=== PATIENT | male | born 1940 | race Caucasian/White ===

== ENCOUNTER → 2018-05-09 11:55 | Outpatient (CLI) | payer MEDICARE, SELFPAY ==
--- NOTE | 2018-05-09 | DI.CT.S_ITS ---
PROCEDURE: CT CHEST HIGH RESOLUTION INDICATIONS: Pulmonary Fibrosis. Short of breath TECHNIQUE: Noncontrast 1.0 and 5.0 mm thick contiguous axial sections from the pulmonary apex to the posterior costophrenic angles, with 7 mm thick coronal and sagittal MIP reformats. 1 mm thick dynamic expiratory images acquired through the upper, mid, and lower lungs. 1.0 mm thick axial sections acquired from the michel to the posterior costophrenic angles in the prone end-inspiration position. For radiation dose reduction, the following was used: automated exposure control, adjustment of mA and/or kV according to patient size. COMPARISON: [facility], CT, CHEST HIGH RESOLUTION, 08/11/2009, 10:16. FINDINGS: Image quality: Excellent. Lungs: No active alveolitis is seen. With reference to the comparison study from August 2009 no worsening pulmonary fibrotic change is found. Pleura: No pleural effusions or pneumothorax. Mediastinum: Heart size is normal. No pericardial effusion. Thoracic aorta and central pulmonary arteries are normal in size. Esophagus is normal in caliber. Bones and chest wall: No suspicious bony lesions. No vertebral body compression fractures. Abdomen: Visualized upper abdominal solid organs and bowel loops appear normal. IMPRESSION: Stable appearance of moderate pulmonary fibrosis, no active alveolitis is found. No source of new symptoms is identified. Dictated by: Wyatt Wei M.D. on 05/09/2018 at 12:56 Approved by: Wyatt Wei M.D. on 05/09/2018 at 12:57
== END ==
PROVIDERS: Family Provider Internal Medicine; Visit Provider Internal Medicine
DX: J84.10 Pulmonary fibrosis, unspecified (principal); R06.02 Shortness of breath
CPT/HCPCS: 71250

== ENCOUNTER → 2019-05-13 18:59 | Outpatient (ROUT) | payer MEDICARE, SELFPAY ==
[2019-05-13 19:28] LABS: Aspartate Aminotransferase 38 IU/L (17-59); BUN Creatinine Ratio 22.9 (6-22); Blood Urea Nitrogen 16 mg/dL (9-20); Calcium 9.7 mg/dL (8.4-10.2); Carbon Dioxide 27 mmol/L (22-32); Chloride 102 mmol/L (98-107); Cholesterol 100 mg/dL (140-199); Estimated Glomerular Filt Rate > 60.0 mL/min (>60); Glucose 95 mg/dL (80-110); HDL Cholesterol 52 mg/dL (40-60); HEMOLYSIS < 15 (0-50); LDL Cholesterol Calculated 26 mg/dL (<100); Potassium 3.9 mmol/L (3.4-5.1); Sodium 138 mmol/L (137-145); Triglycerides 109 mg/dL (35-150)
== END ==
PROVIDERS: Family Provider Internal Medicine; Visit Provider Internal Medicine
DX: E78.2 Mixed hyperlipidemia (principal); I10 Essential (primary) hypertension
CPT/HCPCS: 80048; 80061; 84450

== ENCOUNTER → 2020-03-17 16:44 | Outpatient (ROUT) | payer MEDICARE, SELFPAY ==
[2020-03-17 17:41] LABS: Aspartate Aminotransferase 40 IU/L (17-59); BUN Creatinine Ratio 22.2 (6-22); Blood Urea Nitrogen 18 mg/dL (9-20); Calcium 9.5 mg/dL (8.4-10.2); Carbon Dioxide 34 mmol/L (22-32); Chloride 100 mmol/L (98-107); Cholesterol 121 mg/dL (140-199); Estimated Glomerular Filt Rate > 60.0 mL/min (>60); Glucose 111 mg/dL (80-110); HDL Cholesterol 66 mg/dL (40-60); HEMOLYSIS < 15 (0-50); LDL Cholesterol Calculated 42 mg/dL (<100); Sodium 138 mmol/L (137-145); Triglycerides 63 mg/dL (35-150)
[2020-03-17 18:07] LABS: Prostate Specific Antigen 3.69 ng/mL (0.10-4.00)
== END ==
PROVIDERS: Family Provider Internal Medicine; Visit Provider Internal Medicine
DX: I10 Essential (primary) hypertension (principal); E78.2 Mixed hyperlipidemia; N40.0 Benign prostatic hyperplasia without lower urinary tract symptoms
CPT/HCPCS: 80048; 80061; 84153; 84450

== ENCOUNTER → 2020-03-21 15:49 | Outpatient (CLI) | payer MEDICARE, SELFPAY ==
--- NOTE | 2020-03-21 16:17 | DI.ECHO.S_ITS ---
Echocardiogram Report + + :Name: MARCO ANTONIO MEDEROS Study Date: 03/21/2020 Height: 70 in : :[facility] Weight: 186 lb : : Gender: Male BSA: 2.0 m2 : :: 1940 Age: 80 yrs BP: 137/80 mmHg: :Reason For Study: AORTIC INSUFFICIENCY : :Ordering Physician: BEA, : :ALEX Performed By: Marleen Parnell : :Referring: ALEX FIGUEREDO : + + Interpretation Summary The ejection fraction is estimated to be 55-60%. There is mild mitral regurgitation. There is mild to moderate aortic regurgitation. This is unchanged compared to the previous study. There is mild tricuspid regurgitation. Procedure: A two-dimensional transthoracic echocardiogram with color flow and Doppler was performed. The study quality was technically adequate. Comparison is made with the echocardiogram of 06/15/2010. The heart rate ranged between 67-90 bpm during the study. Left Ventricle: The left ventricle is normal in size. There is mild concentric left ventricular hypertrophy. The ejection fraction is estimated to be 55-60%. Left ventricular wall motion is normal. Diastolic parameters suggest a relaxation abnormality of the left ventricle, consistent with probable normal filling pressures. Right Ventricle: The right ventricle is normal in size and function. Atria: The left atrium is mildly dilated. Right atrial size is normal. There is no Doppler evidence for an interatrial shunt. Mitral Valve: The mitral valve is normal in structure and function. There is mild mitral regurgitation. Aortic Valve: The aortic valve is trileaflet. The aortic valve opens well. There is no aortic valve stenosis. There is mild to moderate aortic regurgitation. This is unchanged compared to the previous study. Tricuspid Valve: The tricuspid valve is normal in structure and function. There is mild tricuspid regurgitation. Pulmonary artery pressures cannot be estimated because of the lack of a measurable TR jet velocity but the IVC suggests a CVP of around 3 mmHg. Pulmonic Valve: The pulmonic valve leaflets are thin and pliable; valve motion is normal. There is no pulmonic valvular regurgitation. Great Vessels: The aortic root is mildly dilated. The ascending aorta is severely enlarged. The IVC is of normal diameter and collapses greater than 50% with a sniff. This suggests a low right atrial pressure of 3 mm Hg. Pericardium/ Pleura There is no pericardial effusion. There is no pleural effusion. MMode/2D Measurements & Calculations LVIDd: 4.2 cm LVOT diam: 2.5 cm LVIDs: 2.8 cm Ao root diam: 3.9 cm FS: 33.9 % asc Aorta Diam: 4.8 cm EPSS: 0.68 cm Ao Arch Diam (Prox Trans): 4.1 cm IVSd: 1.3 cm LVPWd: 1.3 cm LV lopez. diameter/BSA (cm/m^2): 2.1 LV sys. diameter/BSA (cm/m^2): 1.4 LA A2 area: 22.6 cm2 RA long axis: 6.4 cm LA A4 area: 25.1 cm2 RA area: 15.1 cm2 LA length (vol): 6.7 cm RA vol: 30.5 ml LA vol: 71.3 ml RA : 15.1 ml/m2 LA vol index: 35.2 ml/m2 IVC diam: 1.4 cm RVD1 (basal): 3.6 cm TAPSE: 1.9 cm Doppler Measurements & Calculations Ao V2 max: 176.3 cm/sec LVOT Max Jerry: 101.1 cm/sec Ao V2 mean: 113.5 cm/sec LV V1 max P.1 mmHg Ao max P.4 mmHg LV V1 VTI: 19.6 cm Ao mean P.0 mmHg HERBIE(I,D): 2.7 cm2 Ao V2 VTI: 34.0 cm HERBIE(V,D): 2.7 cm2 sev ratio: 0.58 HERBIE indexed to BSA (cm^2/m^2): 1.3 AI P1/2t: 527.1 msec AI dec slope: 257.4 cm/sec2 MV E max jerry: 67.3 cm/sec PA pr(Accel): 43.0 mmHg MV A max jerry: 51.5 cm/sec MV E/A: 1.3 Med Peak E' Jerry: 6.0 cm/sec E/E' med: 11.1 Lat Peak E' Jerry: 11.5 cm/sec E/E' lat: 5.8 E/e' average: 8.5 MV dec time: 0.21 sec SV(LVOT): 92.7 ml Reading Physician:09:57 AM
== END ==
PROVIDERS: Family Provider Internal Medicine; PCP Internal Medicine; Referring Provider Internal Medicine; Visit Provider Internal Medicine
DX: I08.3 Combined rheumatic disorders of mitral, aortic and tricuspid valves (principal); I77.810 Thoracic aortic ectasia
CPT/HCPCS: 93306

== ENCOUNTER → 2020-06-28 14:44 | Outpatient (ROUT) | payer MEDICARE, SELFPAY ==
[2020-06-28 15:06] LABS: BUN Creatinine Ratio 19.7 (6-22); Blood Urea Nitrogen 15 mg/dL (9-20); Calcium 10.1 mg/dL (8.4-10.2); Carbon Dioxide 36 mmol/L (22-32); Chloride 102 mmol/L (98-107); Estimated Glomerular Filt Rate > 60.0 mL/min (>60); Glucose 90 mg/dL (80-110); HEMOLYSIS < 15 (0-50); Potassium 3.9 mmol/L (3.4-5.1); Sodium 141 mmol/L (137-145)
== END ==
PROVIDERS: Family Provider Internal Medicine; PCP Internal Medicine; Visit Provider Internal Medicine
DX: Z00.00 Encounter for general adult medical examination without abnormal findings (principal)
CPT/HCPCS: 80048

== ENCOUNTER 2021-05-23 08:50 | Inpatient (IN) | payer MEDICARE, SELFPAY ==
[2021-05-23] VITALS (19 sets, daily range): BP systolic 144–183; BP diastolic 74–95; PULSE 74–120; RESP 15–32; TEMP 37–37.2; O2SAT 84–99; BMI 25.5; BMI 24.3
--- NOTE | 2021-05-23 09:16 | DI.RAD.S_ITS ---
PROCEDURE: XR CHEST 2V INDICATIONS: shortness of breath TECHNIQUE: 2 views of the chest were acquired. COMPARISON: None. FINDINGS: Surgical changes and devices: None. Lungs and pleura: Patchy airspace opacities noted in the lungs bilaterally compatible with multilobar pneumonia.. No pleural effusions or pneumothorax. Mediastinum: Mediastinal contours are normal. Heart is enlarged. Bones and chest wall: No suspicious bony abnormalities. Soft tissues appear unremarkable. IMPRESSION: Bilateral lung patchy opacities compatible with multilobar pneumonia. Dictated by: Urvashi Rasmussen MD, PhD on 05/23/2021 at 9:53 Approved by: Urvashi Rasmussen MD, PhD on 05/23/2021 at 9:54
--- NOTE | 2021-05-23 09:32 | ED.GENADULT ---
HPI - General Adult General Chief complaint: Shortness of Breath/Dyspnea Stated complaint: SHORTNESS OF BREATH Time Seen by Provider: 05/23/21 09:22 Source: patient Mode of arrival: Wheelchair Limitations: no limitations History of Present Illness HPI narrative: Patient is a 81-year-old male. History of high blood pressure. Has had reported shortness of breath on exertion for the past several weeks/months. He reports that over the past week or so things seem to have gotten worse and this morning it got to the point where he could not even stand up and take a couple steps before becoming very short of breath. He has been immunized against COVID-19. He denies chest discomfort. 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 He has been coughing but is been nonproductive. He denies any fevers. No change in bowel habits. No urinary symptoms. No skin changes. Related Data Home Medications Medication Instructions Recorded Confirmed lisinopril 40 mg tablet 20 mg PO QDAY #0 01/25/12 05/23/21 aspirin 81 mg tablet,delayed 81 mg PO DAILY 05/23/21 05/23/21 release atorvastatin 10 mg tablet 10 mg PO DAILY 05/23/21 05/23/21 carvedilol 6.25 mg tablet 6.25 mg PO BID 05/23/21 05/23/21 cholecalciferol (vitamin D3) 25 25 mcg PO DAILY 05/23/21 05/23/21 mcg (1,000 unit) tablet cyanocobalamin (vitamin B-12) 1,000 mcg PO DAILY 05/23/21 05/23/21 1,000 mcg tablet diclofenac sodium 1 % topical gel 2 g TOPICAL QID PRN 05/23/21 05/23/21 diphenhydramine 25 1 tab PO BEDTIME PRN 05/23/21 05/23/21 mg-acetaminophen 500 mg tablet (Tylenol PM Extra Strength) Allergies Allergy/AdvReac Type Severity Reaction Status Date / Time tamsulosin AdvReac Intermediate syncope Verified 05/23/21 14:48 rosuvastatin AdvReac Mild myalgias Verified 05/23/21 14:48 Review of Systems Constitutional Constitutional: Denies headache(s) ENT Ears, Nose, Mouth, and Throat: Denies headache(s) Cardiovascular Cardiovascular: Reports as per HPI and Reports system reviewed and no additional complaints, except as documented Respiratory Respiratory: Reports as per HPI and Reports system reviewed and no additional complaints, except as documented Gastrointestinal Gastrointestinal: Reports as per HPI and Reports system reviewed and no additional complaints, except as documented Genitourinary Genitourinary: Reports system reviewed and no additional complaints, except as documented and Reports as per HPI Musculoskeletal Musculoskeletal: Reports system reviewed and no additional complaints, except as documented Integumentary/Breasts Skin/Breast: Reports system reviewed and no additional complaints, except as documented Neurologic Neurologic: Denies headache(s) Hematologic/Lymphatic On Anticoagulants: No Patient History Medical History BPH (benign prostatic hyperplasia) Hyperlipemia Hypertension Nonrheumatic aortic (valve) insufficiency Palmar fascial fibromatosis [dupuytren] Pulmonary fibrosis Thoracic aortic aneurysm without rupture Social History household members: spouse Smoking Status: Never smoker alcohol intake: current Smoking Status: Unknown if ever smoked alcohol intake frequency: holidays/special occasions only Substance Use Type: does not use Exam Initial Vital Signs Initial Vital Signs: Vital Signs Temperature 98.7 F 05/23/21 09:05 Pulse Rate 111 H 05/23/21 09:05 Respiratory Rate 25 H 05/23/21 09:05 Blood Pressure 183/87 H 05/23/21 09:05 Pulse Oximetry 87 L 05/23/21 09:05 Const General: cooperative, healthy appearing and comfortable HENCT Head: normal to inspection and normocephalic Eyes General: appearance normal, both eyes and all related structures Resp Effort & Inspection: normal respiratory effort, not labored and tachypneic Auscultation: clear to auscultation bilaterally Cardio Rate: regular rate Rhythm: regular rhythm GI Inspection: normal to inspection Skin General: no rashes or lesions noted Neuro General: patient alert, patient awake and moves all extremities Extrem General: No edema Psych Appearance: grossly normal and well kempt Scores GCS [place] coma scale eye opening: Spontaneous [place] coma scale verbal response: Orientated [place] coma scale motor response: Obey commands [place] coma scale total score: 15 Course Orders Ordered: ED Orders 05/23/21 09:10 COVID19 -Nasal swab/Pre-Proc Stat 05/23/21 09:16 XR chest 2V Stat EKG-12 Lead Stat Measure peak expiratory flow ONCE RT Consult Eval and Treat Now 05/23/21 09:20 Complete Blood Count AUTO DIFF Stat Comprehensive Metabolic Panel Stat Lactate (Lactic Acid) Stat NT-proBNP (BNP-Adult 18+) Stat Procalcitonin Stat Troponin & CK Cardiac Panel Stat 05/23/21 09:40 CT angio chest PE protocol Stat 05/23/21 11:52 Respiratory Panel (Film Array) Stat 05/23/21 11:57 Blood Culture Stat Aspirin (Aspirin Ec 81 Mg Tablet) 81 mg PO DAILY ELIZABETH Atorvastatin Calcium (Atorvastatin 20 Mg Tablet) 10 mg PO DAILY [facility] Carvedilol (Carvedilol 3.125 Mg Tablet) 6.25 mg PO BID [facility]ETH Cyanocobalamin (Cyanocobalamin (Vitamin B-12) 500 Mcg Tablet) 1,000 mcg PO DAILY [facility] Enoxaparin Sodium (Enoxaparin 40 Mg/0.4 Ml Syringe) [address] [facility] Ceftriaxone Sodium 1,000 mg/ (Sodium Chloride) 100 mls @ 200 mls/hr IV Q24H [facility]ETH Azithromycin 500 mg/ Dextrose 250 mls @ 250 mls/hr IV Q24H [facility] Lisinopril (Lisinopril 20 Mg Tablet) 20 mg PO DAILY [facility]ETH Vitamin D (Cholecalciferol (Vitamin D3) 1,000 Unit Tablet) 1,000 unit PO DAILY EL[facility]ABETH Discontinued Medications Azithromycin 500 mg/ Dextrose 250 mls @ 250 mls/hr IV NOW ONE Stop: 05/23/21 11:31 Last Infusion: 05/23/21 16:40 Dose: 0 mls/hr Documented by: Admin: 05/23/21 13:07 Dose: 250 mls/hr Documented by: MARIELENA Ceftriaxone Sodium 1,000 mg/ (Sodium Chloride) 100 mls @ 200 mls/hr IV NOW ONE Stop: 05/23/21 11:31 Last Infusion: 05/23/21 13:13 Dose: 0 mls/hr Documented by: Admin: 05/23/21 11:50 Dose: 200 mls/hr Documented by: MARIELENA Vital Signs Vital signs: Vital Signs - 8 hr 05/23/21 10:00 05/23/21 10:07 05/23/21 10:30 Pulse Rate 120 H 107 H 82 Respiratory Rate 27 H 30 H 27 H Blood Pressure 174/95 H 163/81 H Pulse Oximetry 91 96 98 05/23/21 11:00 05/23/21 11:30 05/23/21 12:00 Pulse Rate 79 78 87 Respiratory Rate 28 H 28 H 32 H Blood Pressure 155/84 H 167/80 H Pulse Oximetry 99 98 98 Medical Decision Making Medical Records Medical records reviewed: Yes I reviewed the patient's medical records. Lab Data Lab results reviewed: Yes I reviewed the patient's lab results. Result diagrams: 05/23/21 09:20 05/23/21 09:20 Labs: Lab Results 05/23/21 05/23/21 05/23/21 Range/Units 09:10 09:20 09:20 WBC 8.4 (4.5-11.0) X10^3/uL RBC 4.63 (4.5-5.9) X10^6/uL Hgb 14.3 (13.5-17.5) g/dL Hct 43.8 (41-53) % MCV 94.6 (80-100) fL MCH 30.9 (26-34) PG MCHC 32.7 (30-36) % RDW 17.5 H (11.6-14.8) % Plt Count 92 L (150-400) X10^3/uL Neut % (Auto) 81.2 H (50-75) % Lymph % (Auto) 4.8 L (25-40) % [place] % (Auto) 12.5 (3-14) % Eos % (Auto) 0.9 L (2-4) % Baso % (Auto) 0.6 (0-2) % Neut # (Auto) 6800 (2092-3174) /uL Lymph # (Auto) 400 L (2953-4257) /uL [place] # (Auto) 1000 H (0-900) /uL Eos # (Auto) 100 (0-450) /uL Baso # (Auto) 0 (0-100) /uL Sodium 138 (137-145) mmol/L Potassium 3.8 (3.4-5.1) mmol/L Chloride 103 (98-107) mmol/L Carbon Dioxide 25 (22-32) mmol/L BUN 15 (9-20) mg/dL Creatinine 0.84 (0.66-1.25) mg/dL Estimated GFR > 60.0 (>60) mL/min BUN/Creatinine Ratio 17.9 (6-22) Glucose 118 H (80-110) mg/dL Lactate (0.7-2.1) mmol/L Calcium 8.9 (8.4-10.2) mg/dL Total Bilirubin 2.2 H (0.2-1.3) mg/dL AST 53 (17-59) IU/L ALT 35 (<50) IU/L Alkaline Phosphatase 65 (38-126) U/L Total Creatine Kinase (55-170) U/L CK-MB (CK-2) CK-MB (CK-2) Rel Index Troponin I (0.01-0.034) ng/mL NT-Pro-B Natriuret Pep 3380 H (<450) pg/mL Total Protein 6.8 (6.3-8.2) g/dL Albumin 4.0 (3.5-5.0) g/dL Globulin 2.8 (1.7-4.1) g/dL Albumin/Globulin Ratio 1.4 (1.0-2.8) Procalcitonin (<0.5) ng/mL Chlamy pneumoniae PCR (Not Detect) Adenovirus (PCR) (Not Detect) B. pertussis DNA (PCR) (Not Detecte) B.parapertussis DNA PCR (Not Detecte) Coronavirus OC43 (PCR) (Not Detect) Coronavirus HKU1 (PCR) (Not Detect) Coronavirus 229E (PCR) (Not Detect) SARS-CoV-2 (PCR) Negative (Negative) Coronavirus NL63 (PCR) (Not Detect) Human Metapneumovir PCR (Not Detect) Influenza Type A (PCR) (Not Detect) Influenza Type B (PCR) (Not Detect) M. pneumoniae (PCR) (Not Detect) Parainfluenza 1 (PCR) (Not Detect) Parainfluenza 2 (PCR) (Not Detect) Parainfluenza 3 (PCR) (Not Detect) Parainfluenza 4 (PCR) (Not Detect) RSV (PCR) (Not Detect) Entero/Rhino (PCR) (Not Detect) 05/23/21 05/23/21 05/23/21 Range/Units 09:20 09:20 09:20 WBC (4.5-11.0) X10^3/uL RBC (4.5-5.9) X10^6/uL Hgb (13.5-17.5) g/dL Hct (41-53) % MCV (80-100) fL MCH (26-34) PG MCHC (30-36) % RDW (11.6-14.8) % Plt Count (150-400) X10^3/uL Neut % (Auto) (50-75) % Lymph % (Auto) (25-40) % [place] % (Auto) (3-14) % Eos % (Auto) (2-4) % Baso % (Auto) (0-2) % Neut # (Auto) (4416-0504) /uL Lymph # (Auto) (5133-4857) /uL [place] # (Auto) (0-900) /uL Eos # (Auto) (0-450) /uL Baso # (Auto) (0-100) /uL Sodium (137-145) mmol/L Potassium (3.4-5.1) mmol/L Chloride (98-107) mmol/L Carbon Dioxide (22-32) mmol/L BUN (9-20) mg/dL Creatinine (0.66-1.25) mg/dL Estimated GFR (>60) mL/min BUN/Creatinine Ratio (6-22) Glucose (80-110) mg/dL Lactate 1.7 (0.7-2.1) mmol/L Calcium (8.4-10.2) mg/dL Total Bilirubin (0.2-1.3) mg/dL AST (17-59) IU/L ALT (<50) IU/L Alkaline Phosphatase (38-126) U/L Total Creatine Kinase 38 L (55-170) U/L CK-MB (CK-2) TNP CK-MB (CK-2) Rel Index TNP Troponin I 0.028 (0.01-0.034) ng/mL NT-Pro-B Natriuret Pep (<450) pg/mL Total Protein (6.3-8.2) g/dL Albumin (3.5-5.0) g/dL Globulin (1.7-4.1) g/dL Albumin/Globulin Ratio (1.0-2.8) Procalcitonin 0.29 (<0.5) ng/mL Chlamy pneumoniae PCR (Not Detect) Adenovirus (PCR) (Not Detect) B. pertussis DNA (PCR) (Not Detecte) B.parapertussis DNA PCR (Not Detecte) Coronavirus OC43 (PCR) (Not Detect) Coronavirus HKU1 (PCR) (Not Detect) Coronavirus 229E (PCR) (Not Detect) SARS-CoV-2 (PCR) (Negative) Coronavirus NL63 (PCR) (Not Detect) Human Metapneumovir PCR (Not Detect) Influenza Type A (PCR) (Not Detect) Influenza Type B (PCR) (Not Detect) M. pneumoniae (PCR) (Not Detect) Parainfluenza 1 (PCR) (Not Detect) Parainfluenza 2 (PCR) (Not Detect) Parainfluenza 3 (PCR) (Not Detect) Parainfluenza 4 (PCR) (Not Detect) RSV (PCR) (Not Detect) Entero/Rhino (PCR) (Not Detect) 05/23/21 Range/Units 11:52 WBC (4.5-11.0) X10^3/uL RBC (4.5-5.9) X10^6/uL Hgb (13.5-17.5) g/dL Hct (41-53) % MCV (80-100) fL MCH (26-34) PG MCHC (30-36) % RDW (11.6-14.8) % Plt Count (150-400) X10^3/uL Neut % (Auto) (50-75) % Lymph % (Auto) (25-40) % [place] % (Auto) (3-14) % Eos % (Auto) (2-4) % Baso % (Auto) (0-2) % Neut # (Auto) (7031-3430) /uL Lymph # (Auto) (6858-8754) /uL [place] # (Auto) (0-900) /uL Eos # (Auto) (0-450) /uL Baso # (Auto) (0-100) /uL Sodium (137-145) mmol/L Potassium (3.4-5.1) mmol/L Chloride (98-107) mmol/L Carbon Dioxide (22-32) mmol/L BUN (9-20) mg/dL Creatinine (0.66-1.25) mg/dL Estimated GFR (>60) mL/min BUN/Creatinine Ratio (6-22) Glucose (80-110) mg/dL Lactate (0.7-2.1) mmol/L Calcium (8.4-10.2) mg/dL Total Bilirubin (0.2-1.3) mg/dL AST (17-59) IU/L ALT (<50) IU/L Alkaline Phosphatase (38-126) U/L Total Creatine Kinase (55-170) U/L CK-MB (CK-2) CK-MB (CK-2) Rel Index Troponin I (0.01-0.034) ng/mL NT-Pro-B Natriuret Pep (<450) pg/mL Total Protein (6.3-8.2) g/dL Albumin (3.5-5.0) g/dL Globulin (1.7-4.1) g/dL Albumin/Globulin Ratio (1.0-2.8) Procalcitonin (<0.5) ng/mL Chlamy pneumoniae PCR Not detected (Not Detect) Adenovirus (PCR) Not detected (Not Detect) B. pertussis DNA (PCR) Not detected (Not Detecte) B.parapertussis DNA PCR Not detected (Not Detecte) Coronavirus OC43 (PCR) Not detected (Not Detect) Coronavirus HKU1 (PCR) Not detected (Not Detect) Coronavirus 229E (PCR) Not detected (Not Detect) SARS-CoV-2 (PCR) Not detected (Negative) Coronavirus NL63 (PCR) Not detected (Not Detect) Human Metapneumovir PCR Not detected (Not Detect) Influenza Type A (PCR) Not detected (Not Detect) Influenza Type B (PCR) Not detected (Not Detect) M. pneumoniae (PCR) Not detected (Not Detect) Parainfluenza 1 (PCR) Not detected (Not Detect) Parainfluenza 2 (PCR) Not detected (Not Detect) Parainfluenza 3 (PCR) Not detected (Not Detect) Parainfluenza 4 (PCR) Not detected (Not Detect) RSV (PCR) Not detected (Not Detect) Entero/Rhino (PCR) Not detected (Not Detect) Imaging Data Chest x-ray: Radiologist's Impression: [address] [address] XRay Report Signed Patient: Fidel Evans MR#: [id number] : 1940 Acct:[id number] Age/Sex: 81 / M Date of Service: 05/23/21 Loc: ED Accession Number: [id number] ?? Procedure: XR chest 2V Ordering Provider: Jarrell Aggarwal D.O. PROCEDURE:? XR CHEST 2V ? INDICATIONS:? shortness of breath ? TECHNIQUE:? 2 views of the chest were acquired.? ? COMPARISON:? None. ? FINDINGS:? ? Surgical changes and devices:? None.? ? Lungs and pleura:? Patchy airspace opacities noted in the lungs bilaterally compatible with multilobar pneumonia..? No pleural effusions or pneumothorax.? ? Mediastinum:? Mediastinal contours are normal.? Heart is enlarged. ? Bones and chest wall:? No suspicious bony abnormalities.? Soft tissues appear unremarkable.? ? IMPRESSION:? Bilateral lung patchy opacities compatible with multilobar pneumonia. ? ? Dictated by: Urvashi Rasmussen MD, PhD on 05/23/2021 at 9:53 ? ? Approved by: Urvashi Rasmussen MD, PhD on 05/23/2021 at 9:54 CT scan - chest: Radiologist's Impression: [address] [address] [address] Scan Report Signed Patient: Fidel Evans MR#: [id number] : 1940 Acct:[id number] Age/Sex: 81 / M Date of Service: 05/23/21 Loc: ED Accession Number: [id number] ?? Procedure: CT angio chest PE protocol Ordering Provider: Jarrell Aggarwal D.O. PROCEDURE:? CT ANGIO CHEST PE PROTOCOL ? INDICATIONS:? SOB/tachycardia KNOWN PULMINARY FIBROSIS ? TECHNIQUE:? After the administration of intravenous contrast, 2 mm thick sections acquired from the pulmonary apices to the posterior costophrenic angles.? 3-dimensional maximum intensity projection (MIP) coronal and sagittal reformats were then acquired through the thorax.? For radiation dose reduction, the following was used:? automated exposure control, adjustment of mA and/or kV according to patient size.? ? COMPARISON:? [facility], CT, CT CHEST HIGH RESOLUTION, 05/09/2018, 11:58. ? FINDINGS:? Lungs:? Severe basilar predominant bilateral interstitial disease with areas of honeycombing in both lower lobes, scattered reticular and ground-glass opacities.? No definite focal consolidation. Airway thickening in keeping with nonspecific bronchitis and/or reactive airways disease.? ? Pleura:? No pleural effusion or pneumothorax.? Heart:? Severe cardiomegaly.? No pericardial effusion.? Reflux of contrast into the IVC and hepatic veins suggesting decreased cardiac output. Chest nodes: Normal.? Thyroid gland:? Negative Aorta:? Enlarged ascending thoracic aorta measuring approximately 5.1 cm in diameter. Scattered atheromatous calcifications in the aorta.? Suboptimal opacification of the lumen however no definite abnormality or displaced intimal calcifications. Pulmonary arteries:? Enlarged.? No intraluminal filling defect Esophagus: Normal Upper abdomen: No significant findings.? Bones:? No compression fracture. No suspicious bone lesion. Diffuse spondylytic changes and facet arthropathy. ? IMPRESSION:? ? No evidence of pulmonary embolism. No aortic dissection identified. ? Severe cardiomegaly.? CT evidence of decreased cardiac output. ? Enlarged ascending thoracic aorta as above. ? Enlarged central pulmonary arteries suggestive of pulmonary arterial hypertension. ? 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 No definite interval change or progression since 05/15/18.? Given advanced interstitial changes and it would be difficult to exclude early bronchopneumonia. If there is persistent clinical diagnostic uncertainty, continued surveillance with short interval radiographic followup after treatment is recommended. ? Dictated by: Amarjit Lee M.D. on 05/23/2021 at 10:05 ? ? Approved by: Amarjit Lee M.D. on 05/23/2021 at 10:12?? ECG Data Attestation: I personally reviewed and interpreted this ECG as follows: Interpretation: Sinus rhythm Occasional PAC Ventricular rate 98 Rightward axis QRS 1-[address] T wave changes Repeat EKG Sinus rhythm Ventricular rate is 78 Incomplete right bundle branch block QRS 98 milliseconds Normal QTC Normal axis Nonspecific ST T wave changes MDM Narrative Medical decision making narrative: Patient was hypoxic upon arrival on room air. This did improve with oxygen by nasal cannula. He states that he felt much better with the nasal cannula as well. He denies chest pain. Initial labs relatively unremarkable. Nonspecific changes on the EKG. Chest x-ray concern for bilateral pneumonia. He does not have leukocytosis. CTA of the chest shows no pulmonary embolism. Patient does have a history of pulmonary fibrosis and what he presents with today worsening over the past couple weeks could potentially be just worsening of the symptoms however given the findings of the chest x-ray we will treat him as a pneumonia. Given his hypoxia patient does require admission to the hospital. Discussed the case with Dr. Perkins with internal medicine who will admit for further evaluation and treatment. Did discuss the findings with the patient and the need for admission. He expressed understanding and agreement as well. Discharge Plan Departure Patient Disposition: Admitted As Inpatient Clinical Impression: Dyspnea on exertion, Hypoxia, Pulmonary fibrosis, Pneumonia Admit Date/Time: 05/23/21 12:00 Admit Provider: Deng Perkins
[2021-05-23 09:36] LABS: Add Manual Diff / Slide Review NO; Basophils Absolute Auto 0 /uL (0-100); Basophils Percent Auto 0.6 % (0-2); Eosinophils Absolute Auto 100 /uL (0-450); Eosinophils Percent Auto 0.9 % (2-4); Hematocrit 43.8 % (41-53); Hemoglobin 14.3 g/dL (13.5-17.5); Lymphocytes Absolute Auto 400 /uL (1100-4500); Lymphocytes Percent Auto 4.8 % (25-40); Mean Corpuscular HGB Conc 32.7 % (30-36); Mean Corpuscular Hemoglobin 30.9 PG (26-34); Mean Corpuscular Volume 94.6 fL (80-100); Monocytes Absolute Auto 1000 /uL (0-900); Monocytes Percent Auto 12.5 % (3-14); Neutrophils Absolute Auto 6800 /uL (1500-7000); Neutrophils Percent Auto 81.2 % (50-75); Platelet Count 92 X10^3/uL (150-400); Red Blood Cell Count 4.63 X10^6/uL (4.5-5.9); Red Cell Distribution Width 17.5 % (11.6-14.8); White Blood Cell Count 8.4 X10^3/uL (4.5-11.0)
[2021-05-23 09:40] LABS: COVID19 -Nasal RAPID Negative (Negative)
--- NOTE | 2021-05-23 09:40 | DI.CT.S_ITS ---
PROCEDURE: CT ANGIO CHEST PE PROTOCOL INDICATIONS: SOB/tachycardia KNOWN PULMINARY FIBROSIS TECHNIQUE: After the administration of intravenous contrast, 2 mm thick sections acquired from the pulmonary apices to the posterior costophrenic angles. 3-dimensional maximum intensity projection (MIP) coronal and sagittal reformats were then acquired through the thorax. For radiation dose reduction, the following was used: automated exposure control, adjustment of mA and/or kV according to patient size. COMPARISON: [facility], CT, CT CHEST HIGH RESOLUTION, 05/09/2018, 11:58. FINDINGS: Lungs: Severe basilar predominant bilateral interstitial disease with areas of honeycombing in both lower lobes, scattered reticular and ground-glass opacities. No definite focal consolidation. Airway thickening in keeping with nonspecific bronchitis and/or reactive airways disease. Pleura: No pleural effusion or pneumothorax. Heart: Severe cardiomegaly. No pericardial effusion. Reflux of contrast into the IVC and hepatic veins suggesting decreased cardiac output. Chest nodes: Normal. Thyroid gland: Negative Aorta: Enlarged ascending thoracic aorta measuring approximately 5.1 cm in diameter. Scattered atheromatous calcifications in the aorta. Suboptimal opacification of the lumen however no definite abnormality or displaced intimal calcifications. Pulmonary arteries: Enlarged. No intraluminal filling defect Esophagus: Normal Upper abdomen: No significant findings. Bones: No compression fracture. No suspicious bone lesion. Diffuse spondylytic changes and facet arthropathy. IMPRESSION: No evidence of pulmonary embolism. No aortic dissection identified. Severe cardiomegaly. CT evidence of decreased cardiac output. Enlarged ascending thoracic aorta as above. Enlarged central pulmonary arteries suggestive of pulmonary arterial hypertension. 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 No definite interval change or progression since 05/15/18. Given advanced interstitial changes and it would be difficult to exclude early bronchopneumonia. If there is persistent clinical diagnostic uncertainty, continued surveillance with short interval radiographic followup after treatment is recommended. Dictated by: Amarjit Lee M.D. on 05/23/2021 at 10:05 Approved by: Amarjit Lee M.D. on 05/23/2021 at 10:12
[2021-05-23 09:46] LABS: Alanine Aminotransferase 35 IU/L (<50); Albumin Globulin Ratio 1.4 (1.0-2.8); Alkaline Phosphatase 65 U/L (38-126); Aspartate Aminotransferase 53 IU/L (17-59); BUN Creatinine Ratio 17.9 (6-22); Bilirubin Total 2.2 mg/dL (0.2-1.3); Blood Urea Nitrogen 15 mg/dL (9-20); Calcium 8.9 mg/dL (8.4-10.2); Carbon Dioxide 25 mmol/L (22-32); Chloride 103 mmol/L (98-107); Estimated Glomerular Filt Rate > 60.0 mL/min (>60); Globulin 2.8 g/dL (1.7-4.1); Glucose 118 mg/dL (80-110); HEMOLYSIS < 15 (0-50); Lactate (Lactic Acid) 1.7 mmol/L (0.7-2.1); Potassium 3.8 mmol/L (3.4-5.1); Sodium 138 mmol/L (137-145); Total Protein 6.8 g/dL (6.3-8.2)
[2021-05-23 09:54] LABS: NT-proBNP (BNP-Adult 18+) 3380 pg/mL (<450)
[2021-05-23 10:38] LABS: Creatine Kinase 38 U/L (55-170)
[2021-05-23 10:51] LABS: Troponin I 0.028 ng/mL (0.01-0.034)
[2021-05-23 10:57] LABS: Procalcitonin 0.29 ng/mL (<0.5)
[2021-05-23] MEDS: cefTRIAXone 1,000 MG in SODIUM CHLORIDE 0.9% 100 ML 200 ML IV (11:50)
[2021-05-23 13:01] LABS: Adenovirus Not Detected (Not Detect); B. parapertussis Not Detected (Not Detecte); Bordetella pertussis Not Detected (Not Detecte); Chlamydophila pneumoniae Not Detected (Not Detect); Coronavirus 229E Not Detected (Not Detect); Coronavirus HKU1 Not Detected (Not Detect); Coronavirus NL 63 Not Detected (Not Detect); Coronavirus OC43 Not Detected (Not Detect); Human Metapneumovirus Not Detected (Not Detect); Human Rhinovirus/Enterovirus Not Detected (Not Detect); Influenza A Not Detected (Not Detect); Influenza B Not Detected (Not Detect); Mycoplasma pneumoniae Not Detected (Not Detect); Parainfluenza Virus 1 Not Detected (Not Detect); Parainfluenza Virus 2 Not Detected (Not Detect); Parainfluenza Virus 3 Not Detected (Not Detect); Parainfluenza Virus 4 Not Detected (Not Detect); Respiratory Syncytial Virus Not Detected (Not Detect); SARS- CoV-2 Not Detected (Not Detecte)
[2021-05-23] MEDS: AZITHROMYCIN 500 MG in DEXTROSE 5% IN WATER 250 ML IV (13:07)
--- NOTE | 2021-05-23 18:01 | DI.ECHO.S_ITS ---
[facility] +---------+ : : [address] : [address] : : : : [id number] : : : : Phone: [phone]+ Echocardiogram Report + + :Name: MARCO ANTONIO MEDEROS Study Date: 05/25/2021 Height: 71 in : :[facility] ReadingLocation: Weight: 174 lb : : Gender: Male BSA: 2.0 m2 : :: 1940 Age: 81 yrs BP: 180/90 mmHg: :Reason For Study: SHORTNESS OF BREATH : :Ordering Physician: DERRICK CLAROS : : Performed By: Marleen Parnell : :Referring: UNSPECIFIED : + + Interpretation Summary The left ventricle is normal in size. Left ventricular systolic function appears normal without focal wall motion abnormalities. The ejection fraction is estimated to be 55-60%. There has been no significant change since the previous exam. The right ventricle is grossly normal size. Right ventricular systolic function is at the lower limits of normal. The right ventricular systolic pressure is estimated to be at least 68 mmHg based on an estimated right atrial pressure of 3 mm Hg. Comparison with the previous study is not possible because this was unable to be assessed on the previous study. The left atrium is severely dilated. The right atrium is mildly dilated. There is mild to moderate mitral regurgitation. The mitral regurgitant jet is eccentrically directed. Coanda effect makes it difficult to measure severity of mitral regurgitation. There is mild aortic regurgitation. There is moderate tricuspid regurgitation. The aortic root is mildly dilated. The ascending aorta is severely enlarged. Procedure: A two-dimensional transthoracic echocardiogram with color flow and Doppler was performed. The study quality was technically adequate. Comparison is made with the echocardiogram of 03/21/2020. The patient was in atrial fibrillation with heart rates between 63-90 bpm during the exam. Left Ventricle: The left ventricle is normal in size. Left ventricular wall thickness is borderline increased. Left ventricular systolic function appears normal without focal wall motion abnormalities. The ejection fraction is estimated to be 55-60%. There has been no significant change since the previous exam. Right Ventricle: The right ventricle is grossly normal size. Right ventricular systolic function is at the lower limits of normal. Atria: The left atrium is severely dilated. The right atrium is mildly dilated. There is no Doppler evidence for an interatrial shunt. Mitral Valve: The mitral valve leaflets appear mildly thickened, but open well. There is mild to moderate mitral regurgitation. The mitral regurgitant jet is eccentrically directed. Coanda effect makes it difficult to measure severity of mitral regurgitation. Aortic Valve: The aortic valve is trileaflet. The aortic valve is mildly calcified. There is no aortic valve stenosis. There is mild aortic regurgitation. Tricuspid Valve: The tricuspid valve leaflets are thin and pliable. There is moderate tricuspid regurgitation. The right ventricular systolic pressure is estimated to be at least 68 mmHg based on an estimated right atrial pressure of 3 mm Hg. Comparison with the previous study is not possible because this was unable to be assessed on the previous study. Pulmonic Valve: The pulmonic valve leaflets are thin and pliable; valve motion is normal. There is no pulmonic valvular regurgitation. Great Vessels: The aortic root is mildly dilated. The ascending aorta is severely enlarged. The IVC is of normal diameter and collapses greater than 50% with a sniff. This suggests a low right atrial pressure of 3 mm Hg. Pericardium/ Pleura There is no pericardial effusion. There is no pleural effusion. MMode/2D Measurements & Calculations LVIDd: 5.1 cm LVOT diam: 2.3 cm LVIDs: 3.2 cm Ao root diam: 3.8 cm FS: 36.5 % asc Aorta Diam: 5.0 cm IVSd: 0.92 cm LVPWd: 1.1 cm LV lopez. diameter/BSA (cm/m^2): 2.5 LV sys. diameter/BSA (cm/m^2): 1.6 LA A2 area: 27.5 cm2 RA long axis: 7.2 cm LA A4 area: 32.7 cm2 RA area: 25.0 cm2 LA length (vol): 6.9 cm RA vol: 74.0 ml LA vol: 109.9 ml RA : 37.2 ml/m2 LA vol index: 55.3 ml/m2 IVC diam: 1.8 cm RVD1 (basal): 3.8 cm TAPSE: 1.5 cm Doppler Measurements & Calculations Ao V2 max: 124.4 cm/sec LVOT Max Jerry: 74.8 cm/sec Ao V2 mean: 79.2 cm/sec LV V1 max P.2 mmHg Ao max P.3 mmHg LV V1 VTI: 15.7 cm Ao mean P.0 mmHg HERBIE(I,D): 3.1 cm2 Ao V2 VTI: 20.7 cm HERBIE(V,D): 2.5 cm2 sev ratio: 0.76 HERBIE indexed to BSA (cm^2/m^2): 1.6 AI P1/2t: 662.5 msec AI dec slope: 180.2 cm/sec2 MV E max jerry: 89.6 cm/sec TR max jerry: 403.2 cm/sec MV A max jerry: 1.3 cm/sec TR max P.0 mmHg MV E/A: 67.5 PA pr(Accel): 49.5 mmHg Med Peak E' Jerry: 7.8 cm/sec E/E' med: 11.5 Lat Peak E' Jerry: 10.4 cm/sec E/E' lat: 8.6 E/e' average: 10.0 MV dec time: 0.22 sec SV(LVOT): 64.3 ml Reading Physician:12:49 PM
--- NOTE | 2021-05-23 18:04 | P.HP_ITS ---
History of Present Illness History of Present Illness Chief complaint: SHORTNESS OF BREATH Narrative: 81yo male with a hx of hypertension and possible UIP that presents with SOB. The patient reports that this has been a gradually worsening process for several months now. However, over the past few days, it's been worse, as demonstrated by his inability to climb a flight of stairs at home without becoming SOB. He denies that SOB is an issue at rest. He denies having any new medications. Denies CP, palpitations, fever/chills, URI sxs, recent travel, a hx of DVT/PE, sick contacts. He does endorse a cough that is slightly productive of clear/yellow sputum. The patient does endorse being referred to a plumbing warehouse helper in the past for evaluation of fibrosis that was first picked up by his PCP in 2018. He denies seeing this plumbing warehouse helper regularly, because, there's nothing that can be done about this issue any way. He reports only occasionally smoking cigarettes as a teenager/college student. He denies any exposure to silica, particulate matter, or any other industrial exposure. 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 The patient does endorse a hx of Dupuytren's contractures. He's underwent corrective surgery to his left fifth digit for this, and was due to undergo one for his right fourth digit 1 month ago but the surgery was postponed. He denies any relevant family history. He reports taking all his medications as prescribed. Patient History Medical History BPH (benign prostatic hyperplasia) Hyperlipemia Hypertension Nonrheumatic aortic (valve) insufficiency Palmar fascial fibromatosis [dupuytren] Pulmonary fibrosis Thoracic aortic aneurysm without rupture Family & Social History Social History: household members spouse Prior Living Arrangements House Safety & Behavioral: Feels Safe in Current Yes Environment Been Physically Hurt or No Threatened By a Person Suicidal Ideation Description None Tobacco & Substance use: Smoking Status Never smoker alcohol intake current alcohol intake frequency holiday/special occasion Substance Use Type does not use Meds Home Medications and Allergies Home Medications Medication Instructions Recorded Confirmed Type lisinopril 40 mg tablet 20 mg PO QDAY #0 01/25/12 05/23/21 History aspirin 81 mg tablet,delayed 81 mg PO DAILY 05/23/21 05/23/21 History release atorvastatin 10 mg tablet 10 mg PO DAILY 05/23/21 05/23/21 History carvedilol 6.25 mg tablet 6.25 mg PO BID 05/23/21 05/23/21 History cholecalciferol (vitamin D3) 25 25 mcg PO DAILY 05/23/21 05/23/21 History mcg (1,000 unit) tablet cyanocobalamin (vitamin B-12) 1,000 mcg PO DAILY 05/23/21 05/23/21 History 1,000 mcg tablet diclofenac sodium 1 % topical gel 2 g TOPICAL QID PRN 05/23/21 05/23/21 History diphenhydramine 25 1 tab PO BEDTIME PRN 05/23/21 05/23/21 History mg-acetaminophen 500 mg tablet (Tylenol PM Extra Strength) Allergies Allergy/AdvReac Type Severity Reaction Status Date / Time tamsulosin AdvReac Intermediate syncope Verified 05/23/21 14:48 rosuvastatin AdvReac Mild myalgias Verified 05/23/21 14:48 Review of Systems Constitutional Comments: Denies fever/chills, night sweats, weight loss. Eyes Comments: Denies vision changes, diplopia. Cardiovascular Comments: Denies CP, palpitations, peripheral edema, orthopnea. Respiratory Comments: Endorses SOB. Endorses snoring. Endorses cough. Denies URI sxs. Gastrointestinal Comments: Denies abd pain, n/v/d, CVA tenderness. Neurologic Comments: Denies headache, weakness, imbalance, recent falls. Exam Vital Signs (past 8 hours): - 05/23/21 10:07 05/23/21 10:30 05/23/21 11:00 Temperature Pulse Rate 107 H 82 79 Respiratory Rate 30 H 27 H 28 H Blood Pressure 174/95 H 163/81 H 155/84 H Pulse Oximetry 96 98 99 05/23/21 11:30 05/23/21 12:00 05/23/21 12:30 Temperature Pulse Rate 78 87 77 Respiratory Rate 28 H 32 H 31 H Blood Pressure 167/80 H 165/77 H Pulse Oximetry 98 98 97 05/23/21 13:00 05/23/21 13:30 05/23/21 13:38 Temperature Pulse Rate 74 99 H 80 Respiratory Rate 30 H 18 26 H Blood Pressure 152/74 H 149/79 H Pulse Oximetry 96 94 96 11/16/21 14:00 05/23/21 14:20 05/23/21 16:13 Temperature 98.6 F 98.9 F Pulse Rate 77 88 80 Respiratory Rate 26 H 15 16 Blood Pressure 145/75 H 144/87 H 159/79 H Pulse Oximetry 96 96 97 Oxygen Delivery Method Nasal Cannula Oxygen Flow Rate 2 Const Other: Patient is laying in bed comfortably upon my entering the room, in no acute distress. Neck Other: No carotid bruits appreciated. Chest Other: No surgical scars over chest wall appreciated. Resp Other: Diminished breath sounds bilaterally with dry inspiratory crackles appreciated to the lung bases. Cardio Other: Regular rate and rhythm. S1 and S2 heart sounds appreciated. No extra heart sounds or murmurs noted. No peripheral edema noted. Extrem Other: No significant digital clubbing appreciated. Palpable and steady bilateral radial and dorsalis pedis pulses. Objective Labs Result Diagrams: 05/23/21 09:20 05/23/21 09:20 Labs: Laboratory Results - last 24 hr 05/23/21 05/23/21 05/23/21 09:10 09:20 09:20 WBC 8.4 RBC 4.63 Hgb 14.3 Hct 43.8 MCV 94.6 MCH 30.9 MCHC 32.7 RDW 17.5 H Plt Count 92 L Neut % (Auto) 81.2 H Lymph % (Auto) 4.8 L Elmore % (Auto) 12.5 Eos % (Auto) 0.9 L Baso % (Auto) 0.6 Neut # (Auto) 6800 Lymph # (Auto) 400 L Elmore # (Auto) 1000 H Eos # (Auto) 100 Baso # (Auto) 0 Sodium 138 Potassium 3.8 Chloride 103 Carbon Dioxide 25 BUN 15 Creatinine 0.84 Estimated GFR > 60.0 BUN/Creatinine Ratio 17.9 Glucose 118 H Lactate Calcium 8.9 Total Bilirubin 2.2 H AST 53 ALT 35 Alkaline Phosphatase 65 Total Creatine Kinase CK-MB (CK-2) CK-MB (CK-2) Rel Index Troponin I NT-Pro-B Natriuret Pep 3380 H Total Protein 6.8 Albumin 4.0 Globulin 2.8 Albumin/Globulin Ratio 1.4 Procalcitonin Nasal Screen MRSA (PCR) Chlamy pneumoniae PCR Adenovirus (PCR) B. pertussis DNA (PCR) B.parapertussis DNA PCR Coronavirus OC43 (PCR) Coronavirus HKU1 (PCR) Coronavirus 229E (PCR) SARS-CoV-2 (PCR) Negative Coronavirus NL63 (PCR) Human Metapneumovir PCR Influenza Type A (PCR) Influenza Type B (PCR) M. pneumoniae (PCR) Parainfluenza 1 (PCR) Parainfluenza 2 (PCR) Parainfluenza 3 (PCR) Parainfluenza 4 (PCR) RSV (PCR) Entero/Rhino (PCR) 05/23/21 05/23/21 05/23/21 09:20 09:20 09:20 WBC RBC Hgb Hct MCV MCH MCHC RDW Plt Count Neut % (Auto) Lymph % (Auto) Elmore % (Auto) Eos % (Auto) Baso % (Auto) Neut # (Auto) Lymph # (Auto) Elmore # (Auto) Eos # (Auto) Baso # (Auto) Sodium Potassium Chloride Carbon Dioxide BUN Creatinine Estimated GFR BUN/Creatinine Ratio Glucose Lactate 1.7 Calcium Total Bilirubin AST ALT Alkaline Phosphatase Total Creatine Kinase 38 L CK-MB (CK-2) TNP CK-MB (CK-2) Rel Index TNP Troponin I 0.028 NT-Pro-B Natriuret Pep Total Protein Albumin Globulin Albumin/Globulin Ratio Procalcitonin 0.29 Nasal Screen MRSA (PCR) Chlamy pneumoniae PCR Adenovirus (PCR) B. pertussis DNA (PCR) B.parapertussis DNA PCR Coronavirus OC43 (PCR) Coronavirus HKU1 (PCR) Coronavirus 229E (PCR) SARS-CoV-2 (PCR) Coronavirus NL63 (PCR) Human Metapneumovir PCR Influenza Type A (PCR) Influenza Type B (PCR) M. pneumoniae (PCR) Parainfluenza 1 (PCR) Parainfluenza 2 (PCR) Parainfluenza 3 (PCR) Parainfluenza 4 (PCR) RSV (PCR) Entero/Rhino (PCR) 05/23/21 05/23/21 11:52 14:30 WBC RBC Hgb Hct MCV MCH MCHC RDW Plt Count Neut % (Auto) Lymph % (Auto) Elmore % (Auto) Eos % (Auto) Baso % (Auto) Neut # (Auto) Lymph # (Auto) Elmore # (Auto) Eos # (Auto) Baso # (Auto) Sodium Potassium Chloride Carbon Dioxide BUN Creatinine Estimated GFR BUN/Creatinine Ratio Glucose Lactate Calcium Total Bilirubin AST ALT Alkaline Phosphatase Total Creatine Kinase CK-MB (CK-2) CK-MB (CK-2) Rel Index Troponin I NT-Pro-B Natriuret Pep Total Protein Albumin Globulin Albumin/Globulin Ratio Procalcitonin Nasal Screen MRSA (PCR) Negative for mrsa Chlamy pneumoniae PCR Not detected Adenovirus (PCR) Not detected B. pertussis DNA (PCR) Not detected B.parapertussis DNA PCR Not detected Coronavirus OC43 (PCR) Not detected Coronavirus HKU1 (PCR) Not detected Coronavirus 229E (PCR) Not detected SARS-CoV-2 (PCR) Not detected Coronavirus NL63 (PCR) Not detected Human Metapneumovir PCR Not detected Influenza Type A (PCR) Not detected Influenza Type B (PCR) Not detected M. pneumoniae (PCR) Not detected Parainfluenza 1 (PCR) Not detected Parainfluenza 2 (PCR) Not detected Parainfluenza 3 (PCR) Not detected Parainfluenza 4 (PCR) Not detected RSV (PCR) Not detected Entero/Rhino (PCR) Not detected Assessment & Plan Assessment & Plan narrative: Assessment: 1. Community-acquired pneumonia 2. 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 Hypertension 4. Hx of hyperlipidemia 5. Hx of Dupuytren's contracture 6. Hx of vitamin D deficiency Plan: 1. Will initiate IV ceftriaxone and IV azithromycin (started on May 23). 2. Problem 1 likely contributed to exacerbation of this problem. Will start PO Prednisone 60 mg daily. Will order echocardiogram, mostly for assessment of right-sided pressures, given degree of patient's pulmonary fibrosis. 3. Will resume home lisinopril 20 mg daily and carvedilol 6.25 mg bid. 4. Will resume home atorvastatin 10 mg daily, and baby aspirin. 5. As per HPI. Patient is due to undergo right fourth digit corrective surgery in the near future. 6. Will continue home supplementation. VTE prophylaxis: Lovenox 40 mg daily Disposition: Home, once clinically stable Time Spent With Patient Critical Care time: I spent a total of [] minutes of critical care time on this patient's care today ; this time is exclusive of procedural time. Quality VTE Deep Vein Thrombosis/Pulmonary Embolism Present on Admission: No
--- NOTE | 2021-05-23 18:12 | PC.NURSE ---
Admit Note Arrived from ER at 1420, walked self from stretcher to bed. On 2L NC with SpO2 96%, does desat to 80s with activity. Denies pain. Reports shortness of breath with activity but that it has improved. Oriented to room and to call light/bed/tv controls. Call light within reach, using appropriately to make needs known. Using urinal at bedside independently. Watch, ring, and glasses remain with pt. took home shoes, clothing, wallet.
[2021-05-23] MEDS: carvediloL 3.125 MG TABLET 6.25 MG PO (20:23)
[2021-05-23] MEDS: diphenhydrAMINE 25 MG TABLET PO (20:24)
[2021-05-23] MEDS: ACETAMINOPHEN 325 MG TABLET 650 MG PO (20:24)
[2021-05-24] VITALS (27 sets, daily range): BP systolic 100–152; BP diastolic 59–87; PULSE 70–156; RESP 17–36; TEMP 36.3–37; O2SAT 92–99
--- NOTE | 2021-05-24 02:55 | PC.NURSE ---
SHIFT Report received, care assumed 193. Pt A&Ox4. C/o mild neck pain, requests acetaminophen; also requests diphenhydramine for sleep. VSS on 2LNC. Uses call light appropriately, gets up to bathroom with FWW and standby assist, remaining on 2LNC with extension tubing. Desats mid- to high 80's with activity.
[2021-05-24 05:49] LABS: Add Manual Diff / Slide Review NO; Basophils Absolute Auto 0 /uL (0-100); Basophils Percent Auto 0.5 % (0-2); Eosinophils Absolute Auto 100 /uL (0-450); Eosinophils Percent Auto 1.4 % (2-4); Hematocrit 41.6 % (41-53); Hemoglobin 13.6 g/dL (13.5-17.5); Lymphocytes Absolute Auto 500 /uL (1100-4500); Lymphocytes Percent Auto 7.3 % (25-40); Mean Corpuscular HGB Conc 32.6 % (30-36); Mean Corpuscular Volume 94.9 fL (80-100); Monocytes Absolute Auto 1200 /uL (0-900); Monocytes Percent Auto 16.7 % (3-14); Neutrophils Absolute Auto 5200 /uL (1500-7000); Neutrophils Percent Auto 74.1 % (50-75); Platelet Count 87 X10^3/uL (150-400); Red Blood Cell Count 4.38 X10^6/uL (4.5-5.9); Red Cell Distribution Width 17.8 % (11.6-14.8)
[2021-05-24 05:54] LABS: Blood Urea Nitrogen 12 mg/dL (9-20); Calcium 8.7 mg/dL (8.4-10.2); Carbon Dioxide 29 mmol/L (22-32); Chloride 103 mmol/L (98-107); Estimated Glomerular Filt Rate > 60.0 mL/min (>60); Glucose 106 mg/dL (80-110); HEMOLYSIS < 15 (0-50); Potassium 3.2 mmol/L (3.4-5.1); Sodium 139 mmol/L (137-145)
[2021-05-24] MEDS: POTASSIUM CHLORIDE IN WATER 10 MEQ/100 ML PIGGYBACK 100 MEQ IV ×8 (09:08→16:52)
[2021-05-24] MEDS: lisinopriL 20 MG TABLET PO (09:39)
[2021-05-24] MEDS: CHOLECALCIFEROL (VITAMIN D3) 1,000 UNIT TABLET 1000 UNIT PO (09:39)
[2021-05-24] MEDS: ASPIRIN EC 81 MG TABLET PO (09:39)
[2021-05-24] MEDS: CYANOCOBALAMIN (VITAMIN B-12) 500 MCG TABLET 1000 MCG PO (09:39)
[2021-05-24] MEDS: ATORVASTATIN 20 MG TABLET 10 MG PO (09:40)
[2021-05-24] MEDS: carvediloL 12.5 MG TABLET 25 MG PO (09:40)
[2021-05-24] MEDS: predniSONE 20 MG TABLET 60 MG PO (09:40)
[2021-05-24] MEDS: ENOXAPARIN 40 MG/0.4 ML SYRINGE SUBCUT (09:40)
--- NOTE | 2021-05-24 11:02 | CM.DANOTE ---
Patient is an 81 yo male who was admitted on 05/23/21 for SOB. Pt has M[employer] and [employer] for insurance and his PCP is Dr. Ross Sexton. EMR was reviewed. Per , pt with hx of pulmonary fibrosis at baseline and admitted for community acquired pneumonia and started on IV-Abx and on 2LNC and SBA in room. Pt not stable for d/c yet today. PT has not been ordered yet and unclear if pt could benefit from PT eval prior to d/c. SW met bedside with pt and explained role and pt confirms that he lives in [place] with his and is independent at baseline. Pt's spouse is his DPOA and pt has a son in [place] and a son in [facility] and spouse has twin adult Dtrs who are flying into town today for iday. Pt states that his spouse was admitted to the hospital last week for GI bleed with unknown etiology and outpt follow up with GI and PCP but is stable to provide transport and assist at d/c along with her adult Dtrs arriving today for the week. Pt's mother susie is currently on Hospice and imminent at a local SNF and therefore spouse and her Dtrs will be spending time with her for end of life visitation. Pt denies any hx of SNF or HH and does not anticipate any needs at d/c although does confirm that he is weak and currently below baseline but feeling better since yesterday. Plan: SW to follow closely for possible need of PT eval and recommendations to confirm safe plan of home with spouse and family when stable for discharge. PIETER Mcgee Discharge Planning/Care Management CM Discharge Assessment Start: 05/24/21 11:00 Freq: Status: Active Protocol: Document 05/24/21 11:00 (Rec: 05/24/21 11:02 [id number]) Discharge Planning Assessment Assigned Station Baggage Agent PIETER Felder DPOA/Assigned Designee Name spouse Jeanette Contact Information [phone] Advance Directives? Yes Advance Directives on File No History Provided By Patient,Medical Record Has Patient been admitted in last 30 No days? Prior Living Arrangements House Household Members spouse Type of transporation used prior to Drives own vehicle admit Independent with ADL's Yes Is patient alert and oriented? Yes Caregiver for Another No Patient/Family Preference Home with Home Health Comment Pending possible PT eval and recommendations Barriers to Discharge No Discharge Plan Home Transportation Arrangement Spouse and spouse's Dtr are available for transport at d/c . Additional Comment Pending PT eval and recommendations Whiteboard Updated in Patient Room with Yes name and ext. # of Station Baggage Agent Review Status In Process Please Provide Date Initial DC 05/24/21 Assessment Was Performed Next Review Type Continued Stay Review
[2021-05-24] MEDS: LORazepam 2 MG/ML INJ 0.5 MG IV (11:12)
[2021-05-24] MEDS: ADENOSINE 6 MG/2 ML VIAL IV (11:50)
[2021-05-24] MEDS: ADENOSINE 6 MG/2 ML VIAL 12 MG IV (11:55)
[2021-05-24] MEDS: cefTRIAXone 1,000 MG in SODIUM CHLORIDE 0.9% 100 ML 200 ML IV (12:23)
[2021-05-24] MEDS: dilTIAZem 5 MG/ML SDV 15 MG IV (12:24)
[2021-05-24] MEDS: dilTIAZem 125 MG in DEXTROSE 5 % IN WATER 100 ML IV (12:25)
--- NOTE | 2021-05-24 12:49 | PM.PN.1 ---
Subjective Subjective Interval history: The patient reports feeling somewhat anxious at times, and he attributes this to his [id number] being sick recently, and now being enrolled in hospice. He denies any worsening of his SOB. He denies ever feeling palpitations, CP, n/v, abd pain, arm pain, jaw pain. Exam Vital Signs (past 8 hours): - 05/25/21 05:00 05/25/21 06:00 05/25/21 07:00 Pulse Rate 62 63 63 Respiratory Rate 18 19 20 Blood Pressure 118/67 123/56 L 124/63 Pulse Oximetry 97 97 96 05/25/21 08:00 05/25/21 09:00 05/25/21 09:01 Pulse Rate 64 125 H 123 H Respiratory Rate 14 32 H 43 H Blood Pressure 127/68 140/107 H Pulse Oximetry 97 99 98 05/25/21 09:47 05/25/21 10:00 05/25/21 11:00 Pulse Rate 66 66 69 Respiratory Rate 21 27 H Blood Pressure 140/107 H 135/71 135/78 Pulse Oximetry 99 100 05/25/21 12:00 Pulse Rate 117 H Respiratory Rate 34 H Blood Pressure 146/81 H Pulse Oximetry 97 Oxygen Delivery Method Nasal Cannula Oxygen Flow Rate 2 Narrative Exam Narrative: Const Other: Patient is laying in bed comfortably upon my entering the room, in no acute distress. Neck Other: No carotid bruits appreciated. Chest Other: No surgical scars over chest wall appreciated. Resp Other: Diminished breath sounds bilaterally with dry inspiratory crackles appreciated to the lung bases. Cardio Other: Regular rate and rhythm. S1 and S2 heart sounds appreciated. No extra heart sounds or murmurs noted. No peripheral edema noted. Extrem Other: No significant digital clubbing appreciated. Palpable and steady bilateral radial and dorsalis pedis pulses. Objective Labs Result Diagrams: 05/24/21 05:22 05/24/21 18:13 Labs: Laboratory Results - last 24 hr 05/24/21 05/24/21 05/24/21 05:22 05:22 12:40 PT 13.7 H INR 1.2 APTT 34 Potassium Magnesium 1.7 Hepatitis A IgM Ab Negative Hep Bs Antigen Negative Hep B Core IgM Ab Negative Hepatitis C Antibody <0.1 Hep C Ab Signal/Cutoff Comment 05/24/21 05/24/21 05/25/21 18:13 21:05 07:21 PT INR APTT 88 H* D 56 H D Potassium 4.4 D Magnesium 2.4 H Hepatitis A IgM Ab Hep Bs Antigen Hep B Core IgM Ab Hepatitis C Antibody Hep C Ab Signal/Cutoff [facility] Medical History BPH (benign prostatic hyperplasia) Hyperlipemia Hypertension Nonrheumatic aortic (valve) insufficiency Palmar fascial fibromatosis [dupuytren] Pulmonary fibrosis Thoracic aortic aneurysm without rupture Social History household members: spouse Smoking Status: Never smoker alcohol intake: current Assessment & Plan Assessment & Plan narrative: Assessment: 1. Atrial flutter, new onset 2. Community-acquired pneumonia 3. 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 Hypertension 5. Hx of hyperlipidemia 6. Hx of Dupuytren's contracture 7. Hx of vitamin D deficiency Plan: 1. Patient developed asymptomatic SVT in 150's that did not improve with adenosine but improved with IV diltiazem drip. PO diltiazem 120 mg ER was initiated with good effect. Nightly carvedilol dose held so as to avoid bradycardia potential. IV heparin gtt on-board for now, in case of need for procedure, etc., and will plan to transition to PO Eliquis 5 mg bid closer to discharge. 1. Patient improving on IV ceftriaxone and IV azithromycin (started on May 23). 2. Problem 1 likely contributed to exacerbation of this problem. Will start PO Prednisone 60 mg daily. Pending echocardiogram. 3. Will resume home lisinopril 20 mg daily. Increased home carvedilol to 25 mg bid but held nightly dose due to problem 1. 4. Will resume home atorvastatin 10 mg daily, and baby aspirin. 5. As per HPI. Patient is due to undergo right fourth digit corrective surgery in the near future. 6. Will continue home supplementation. VTE prophylaxis: IV heparin per problem 1 Disposition: Home, once clinically stable Time Spent With Patient Critical Care time: I spent a total of [] minutes of critical care time on this patient's care today; this time is exclusive of procedural time. Quality VTE Deep Vein Thrombosis/Pulmonary Embolism Present on Admission: No
[2021-05-24 13:01] LABS: INR 1.2 (0.9-1.3); Prothrombin Time 13.7 SECONDS (10.1-12.7)
[2021-05-24 13:03] LABS: PTT Partial Thromboplastin Tim 34 SECONDS (26.4-36.2)
[2021-05-24 13:05] LABS: Magnesium 1.7 mg/dL (1.6-2.3)
[2021-05-24] MEDS: AZITHROMYCIN 500 MG in DEXTROSE 5% IN WATER 250 ML IV (13:35)
[2021-05-24] MEDS: MAGNESIUM SULFATE 2 GM/50 ML PIGGYBACK IV (14:04)
--- NOTE | 2021-05-24 14:23 | PM.CN.EICU ---
History of Present Illness Consult details Chief complaint: SHORTNESS OF BREATH :: This patient was seen via real time interactive two-way audiovisual telecommunication. 81 y.o. male admitted 05/23 for probable community-acquired pneumonia and UIP exacerbation who has been upgraded to ICU for a diltiazem infusion. He presentted 06/22 with SOB and dypsnea on exertion. Chest CTA did not show a PE and showed stable fibrotic changes compared to imaging from 2018. He is on ceftriaxone and azithromycin. COUNT INCLUDES THE [facility] Medical History BPH (benign prostatic hyperplasia) Hyperlipemia Hypertension Nonrheumatic aortic (valve) insufficiency Palmar fascial fibromatosis [dupuytren] Pulmonary fibrosis Thoracic aortic aneurysm without rupture Social History household members: spouse Smoking Status: Never smoker alcohol intake: current Current Medications Current Medications Medications: Home Medications lisinopril 40 mg tablet 20 mg PO QDAY #0 01/25/12 [History Confirmed 05/23/21] aspirin 81 mg tablet,delayed release 81 mg PO DAILY 05/23/21 [History Confirmed 05/23/21] atorvastatin 10 mg tablet 10 mg PO DAILY 05/23/21 [History Confirmed 05/23/21] carvedilol 6.25 mg tablet 6.25 mg PO BID 05/23/21 [History Confirmed 05/23/21] cholecalciferol (vitamin D3) 25 mcg (1,000 unit) tablet 25 mcg PO DAILY 05/23/21 [History Confirmed 05/23/21] cyanocobalamin (vitamin B-12) 1,000 mcg tablet 1,000 mcg PO DAILY 05/23/21 [History Confirmed 05/23/21] diclofenac sodium 1 % topical gel 2 g TOPICAL QID PRN 05/23/21 [History Confirmed 05/23/21] diphenhydramine 25 mg-acetaminophen 500 mg tablet (Tylenol PM Extra Strength) 1 tab PO BEDTIME PRN 05/23/21 [History Confirmed 05/23/21] Visit Medications (administered) Generic Name Dose Route Start Last Admin Trade Name Freq PRN Reason Stop Dose Admin Acetaminophen 650 mg 05/23/21 17:52 05/23/21 20:24 Acetaminophen 325 Mg Tablet PO 650 mg BEDTIME PRN Administration Sleep Aspirin 81 mg 05/24/21 09:00 05/24/21 09:39 Aspirin Ec 81 Mg Tablet PO 81 mg DAILY ELIZABETH Administration Atorvastatin Calcium 10 mg 05/24/21 09:00 05/24/21 09:40 Atorvastatin 20 Mg Tablet PO 10 mg DAILY ELIZABETH Administration Carvedilol 25 mg 05/24/21 09:45 05/24/21 09:40 Carvedilol 12.5 Mg Tablet PO 25 mg BID ELIZABETH Administration Cyanocobalamin 1,000 mcg 05/24/21 09:00 05/24/21 09:39 Cyanocobalamin (Vitamin B-12) 500 Mcg Tablet PO 1,000 mcg DAILY ELIZABETH Administration Diphenhydramine HCl 25 mg 05/23/21 17:53 05/23/21 20:24 Diphenhydramine 25 Mg Tablet PO 25 mg BEDTIME PRN Administration Sleep Enoxaparin Sodium 40 mg 05/24/21 09:00 05/24/21 09:40 Enoxaparin 40 Mg/0.4 Ml Syringe SUBCUT 40 mg DAILY ELIZABETH Administration Ceftriaxone Sodium 1,000 mg/ 100 mls @ 200 mls/hr 05/24/21 12:00 05/24/21 13:42 Sodium Chloride IV Infused Q24H ELIZABETH Infusion Azithromycin 500 mg/ Dextrose 250 mls @ 250 mls/hr 05/24/21 13:00 05/24/21 13:35 IV 250 mls/hr Q24H ELIZABETH Administration POTASSIUM CHLORIDE IN WATER 10 meq in 100 mls @ 100 mls/hr 05/24/21 11:30 05/24/21 13:41 Potassium Cl 10 Meq/100 Ml Deanna IV 05/24/21 15:29 100 mls/hr Q1H ELIZABETH Administration Diltiazem HCl 125 mg/ Dextrose 125 mls @ 5 mls/hr 05/24/21 12:11 05/24/21 12:45 IV 10 mg/hr TITRATE ELIZABETH 10 mls/hr Titration Protocol 5 MG/HR Magnesium Sulfate 2 gm in 50 mls @ 25 mls/hr 05/24/21 13:42 05/24/21 14:04 Magnesium Sulfate IV 05/24/21 15:41 25 mls/hr NOW ONE Administration Lisinopril 20 mg 05/24/21 09:00 05/24/21 09:39 Lisinopril 20 Mg Tablet PO 20 mg DAILY ELIZABETH Administration Prednisone 60 mg 05/24/21 09:00 05/24/21 09:40 Prednisone 20 Mg Tablet PO 60 mg DAILY ELIZABETH Administration Vitamin D 1,000 unit 05/24/21 09:00 05/24/21 09:39 Cholecalciferol (Vitamin D3) 1,000 Unit Tablet PO 1,000 unit DAILY ELIZABETH Administration Review of Systems Review of Systems Narrative: not performed as patient is sleeping Exam Vital Signs (past 8 hours): - 05/24/21 08:59 05/24/21 09:33 05/24/21 12:00 Temperature 98.6 F Pulse Rate 78 156 H 152 H Respiratory Rate 17 18 30 H Blood Pressure 148/80 H 120/87 Pulse Oximetry 99 98 97 05/24/21 12:02 05/24/21 12:11 05/24/21 13:00 Temperature Pulse Rate 152 H 152 H 132 H Respiratory Rate 32 H 33 H 29 H Blood Pressure 126/84 120/83 Pulse Oximetry 96 96 93 05/24/21 13:01 Temperature Pulse Rate 133 H Respiratory Rate 35 H Blood Pressure 131/79 Pulse Oximetry 92 Oxygen Delivery Method Nasal Cannula Oxygen Flow Rate 2 Narrative Exam Narrative: elderly male who is sleeping Cardio Rate: regular rate Rhythm: abnormal rhythm irregularly irregular Objective Labs Result Diagrams: 05/24/21 05:22 05/24/21 05:22 Labs: Laboratory Results - last 24 hr 05/23/21 05/24/21 05/24/21 14:30 05:22 05:22 WBC 7.0 RBC 4.38 L Hgb 13.6 Hct 41.6 MCV 94.9 MCH 31.0 MCHC 32.6 RDW 17.8 H Plt Count 87 L Neut % (Auto) 74.1 Lymph % (Auto) 7.3 L Gates % (Auto) 16.7 H Eos % (Auto) 1.4 L Baso % (Auto) 0.5 Neut # (Auto) 5200 Lymph # (Auto) 500 L Gates # (Auto) 1200 H Eos # (Auto) 100 Baso # (Auto) 0 PT INR APTT Sodium 139 Potassium 3.2 L Chloride 103 Carbon Dioxide 29 BUN 12 Creatinine 0.75 Estimated GFR > 60.0 BUN/Creatinine Ratio 16.0 Glucose 106 Calcium 8.7 Magnesium Nasal Screen MRSA (PCR) Negative for mrsa 05/24/21 05/24/21 05:22 12:40 WBC RBC Hgb Hct MCV MCH MCHC RDW Plt Count Neut % (Auto) Lymph % (Auto) Gates % (Auto) Eos % (Auto) Baso % (Auto) Neut # (Auto) Lymph # (Auto) Gates # (Auto) Eos # (Auto) Baso # (Auto) PT 13.7 H INR 1.2 APTT 34 Sodium Potassium Chloride Carbon Dioxide BUN Creatinine Estimated GFR BUN/Creatinine Ratio Glucose Calcium Magnesium 1.7 Nasal Screen MRSA (PCR) Assessment & Plan Assessment and plan (1) Community acquired pneumonia: Status: Acute Plan: -Continue ceftriaxone/azithromycin (2) Atrial fibrillation with rapid ventricular response: Status: Acute Plan: -Continue diltiazem infusion--currently at 10 mg/hr -Continue heparin -Consider 2-D echo -Check TSH/free T4-->ordered for AM labs -Hypokalemia and low normal Mg+2 are being addressed (3) UIP (usual interstitial pneumonitis): Status: Acute Plan: -Continue prednisone 60 mg Time Spent With Patient Critical Care time: I spent a total of [] minutes of critical care time on this patient's care today; this time is exclusive of procedural time.
[2021-05-24] MEDS: HEPARIN 5,000 UNIT/ML VIAL 6300 UNIT IV (14:44)
[2021-05-24] MEDS: HEPARIN DRIP 25,000 UNIT/500 ML IV.SOLN 28.44 UNIT IV (14:45)
--- NOTE | 2021-05-24 17:14 | PC.NURSE ---
Day Shift Note Patient noted to be in a narrow complex tachycardia in the 150s this morning - increased dose of carvedilol administered per MD order with no change in HR noted. Denies pain, denies shortness of breath. Pt did report feeling anxious so 0.5 mg IV Ativan administered per MD order with no change in HR. Adenosine attempted x3 - brief slowing of rate (for about 2 seconds) demonstrating atrial flutter, MD notified. Diltiazem IV push administered 15 mg and diltiazem gtt started, titrated to 10 mg/hr. Pt transitioned to ICU status at this time and Dr. Guerrero notified. BP has remained stable. Heparin gtt initiated per MD order for anticoagulation (See eMAR). Remains on 2L NC with SpO2 92-96%, desats to 80s with activity. SBA use of urinal at bedside. Call light within reach, using appropriately to make needs known. [ End ]
[2021-05-24] MEDS: dilTIAZem CD 120 MG CAP PO (17:31)
[2021-05-24 18:37] LABS: HEMOLYSIS < 15 (0-50); Magnesium 2.4 mg/dL (1.6-2.3); Potassium 4.4 mmol/L (3.4-5.1)
--- NOTE | 2021-05-24 19:46 | PM.ICURNDS ---
- Note: Case d/w bedside nurse. Pt upgraded earlier today to ICU for cardizem infusion. h/o pulm fibrosis (UIP) and also bein treated for CAP w CFTX/Azithro. He is on a heparin drip as well. Plan to continue w current care. Can wean off cardizem infusion once oral cardizem starts working. Currentl on 5 mg/hr of cardizem and HR in 70s
[2021-05-24] MEDS: diphenhydrAMINE 25 MG TABLET PO (20:30)
[2021-05-24] MEDS: ACETAMINOPHEN 325 MG TABLET 650 MG PO (20:30)
[2021-05-24 21:47] LABS: PTT Partial Thromboplastin Tim 88 SECONDS (26.4-36.2)
[2021-05-25] VITALS (21 sets, daily range): BP systolic 111–146; BP diastolic 56–107; PULSE 61–130; RESP 14–43; TEMP 36.1; O2SAT 95–100
[2021-05-25 01:10] LABS: HBsAg Screen Negative (Negative); Hepatitis A Antibody IgM Negative (Negative); Hepatitis B Core Antibody IgM Negative (Negative); Hepatitis C Antibody <0.1 s/co ratio (0.0-0.9)
--- NOTE | 2021-05-25 01:15 | PC.NURSE ---
Addendum entered by Gail Iqbal R.N. 05/25/21 06:44: 0645- Diltiazem remains off. Heart rate 83 CVR. Patient states he will be going home today, he is tired of being here. Will monitor. Original Note: 0100- Patient diltiazem stopped at 0030. Restarted at 0100 for elevated heart rate. Will monitor.
[2021-05-25 08:14] LABS: PTT Partial Thromboplastin Tim 56 SECONDS (26.4-36.2)
[2021-05-25] MEDS: lisinopriL 20 MG TABLET PO (09:47)
[2021-05-25] MEDS: ATORVASTATIN 20 MG TABLET 10 MG PO (09:48)
[2021-05-25] MEDS: CHOLECALCIFEROL (VITAMIN D3) 1,000 UNIT TABLET 1000 UNIT PO (09:48)
[2021-05-25] MEDS: predniSONE 20 MG TABLET 60 MG PO (09:48)
[2021-05-25] MEDS: CYANOCOBALAMIN (VITAMIN B-12) 500 MCG TABLET 1000 MCG PO (09:49)
[2021-05-25] MEDS: ASPIRIN EC 81 MG TABLET PO (09:49)
[2021-05-25] MEDS: dilTIAZem CD 120 MG CAP PO (09:49)
[2021-05-25] MEDS: APIXABAN 5 MG TABLET PO (12:13)
[2021-05-25] MEDS: cefTRIAXone 1,000 MG in SODIUM CHLORIDE 0.9% 100 ML 200 ML IV (12:13)
[2021-05-25] MEDS: AZITHROMYCIN 500 MG in DEXTROSE 5% IN WATER 250 ML IV (12:16)
--- NOTE | 2021-05-25 13:16 | P.DS_ITS ---
History of Present Illness History of Present Illness Chief complaint: SHORTNESS OF BREATH Narrative: 81yo male with a hx of hypertension and possible UIP that presents with SOB. The patient reports that this has been a gradually worsening process for several months now. However, over the past few days, it's been worse, as demonstrated by his inability to climb a flight of stairs at home without becoming SOB. He denies that SOB is an issue at rest. He denies having any new medications. Denies CP, palpitations, fever/chills, URI sxs, recent travel, a hx of DVT/PE, sick contacts. He does endorse a cough that is slightly productive of clear/yellow sputum. The patient does endorse being referred to a field observer in the past for evaluation of fibrosis that was first picked up by his PCP in 2018. He denies seeing this field observer regularly, because, there's nothing that can be done about this issue any way. He reports only occasionally smoking cigarettes as a teenager/college student. He denies any exposure to silica, particulate matter, or any other industrial exposure. 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 The patient does endorse a hx of Dupuytren's contractures. He's underwent corrective surgery to his left fifth digit for this, and was due to undergo one for his right fourth digit 1 month ago but the surgery was postponed. He denies any relevant family history. He reports taking all his medications as prescribed. Discharge Providers Provider Date of admission: 05/23/21 12:00 Discharge Date: 05/25/21 Primary care physician: Ross Sexton MD Discharge provider: Deng Perkins MD Summary Hospital Course Discharge Diagnosis: 1. Atrial flutter, new onset 2. Community-acquired pneumonia, resolved 3. 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 Thrombocytopenia of unclear etiology 6. Hypertension 7. Hx of hyperlipidemia 8. Hx of Dupuytren's contracture 9. Hx of vitamin D deficiency Exam Vital Signs (past 8 hours): - 05/25/21 06:00 05/25/21 07:00 05/25/21 08:00 Pulse Rate 63 63 64 Respiratory Rate 19 20 14 Blood Pressure 123/56 L 124/63 127/68 Pulse Oximetry 97 96 97 11/18/21 09:00 05/25/21 09:01 05/25/21 09:47 Pulse Rate 125 H 123 H 66 Respiratory Rate 32 H 43 H Blood Pressure 140/107 H 140/107 H Pulse Oximetry 99 98 05/25/21 10:00 05/25/21 11:00 05/25/21 12:00 Pulse Rate 66 69 117 H Respiratory Rate 21 27 H 34 H Blood Pressure 135/71 135/78 146/81 H Pulse Oximetry 99 100 97 Oxygen Delivery Method Nasal Cannula Oxygen Flow Rate 2 Objective Labs Result Diagrams: 05/24/21 05:22 05/24/21 18:13 Labs: Laboratory Results - last 24 hr 05/24/21 05/24/21 05/24/21 05:22 18:13 21:05 APTT 88 H* D Potassium 4.4 D Magnesium 2.4 H Hepatitis A IgM Ab Negative Hep Bs Antigen Negative Hep B Core IgM Ab Negative Hepatitis C Antibody <0.1 Hep C Ab Signal/Cutoff Comment 05/25/21 07:21 APTT 56 H D Potassium Magnesium Hepatitis A IgM Ab Hep Bs Antigen Hep B Core IgM Ab Hepatitis C Antibody Hep C Ab Signal/Cutoff PFSH Medical History BPH (benign prostatic hyperplasia) Hyperlipemia Hypertension Nonrheumatic aortic (valve) insufficiency Palmar fascial fibromatosis [dupuytren] Pulmonary fibrosis Thoracic aortic aneurysm without rupture Social History household members: spouse Smoking Status: Never smoker alcohol intake: current Discharge Assessment & Plan Assessment and Plan Assessment: Assessment: 1. Atrial flutter, new onset 2. Community-acquired pneumonia, resolved 3. 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 Thrombocytopenia of unclear etiology 6. Hypertension 7. Hx of hyperlipidemia 8. Hx of Dupuytren's contracture 9. Hx of vitamin D deficiency Plan of Treatment: Plan: 1. Patient responded well to IV diltiazem inpatient. Will maintain on PO diltiazem 120 ER once daily on discharge. Will continue home PO carvedilol 6.25 mg bid, too. 2. Patient received 3 days total of IV ceftriaxone and azithromycin with good effect. My suspicion for true bacterial pneumonia is low, and so will not discharge on antibiotic. 3. Problem 1 likely contributed to exacerbation of this problem. Will start PO Prednisone 60 mg daily for a total of 5 days. 4. Patient is already aware of this problem. 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 5. Hepatitis panel and HIV negative. Patient informed about this problem. Will follow-up with PCP. If this issue persists, he might require bone marrow biopsy. 6. Will resume home lisinopril 20 mg daily, carvedilol 6.25 mg bid. 7. Will resume home atorvastatin 10 mg daily, and baby aspirin. 8. As per HPI. Patient is due to undergo right fourth digit corrective surgery in the near future. 9. Will continue home supplementation. Discharge Plan Discharge Plan Patient Disposition: Home Discharge orders & Medications Prescriptions: New prednisone 20 mg Tablet 60 mg PO DAILY 5 Days Qty: 15 0RF diltiazem HCl 120 mg Capsule,Extended Release 24hr 120 mg PO DAILY 90 Days Qty: 90 4RF Eliquis 5 mg Tablet 5 mg PO BID 90 Days Qty: 180 4RF Continued lisinopril 40 MG tablet 20 mg PO QDAY Qty: 0 0RF carvedilol 6.25 mg Tablet 6.25 mg PO BID 0RF Rx Instructions: must administer with a meal/food atorvastatin 10 mg Tablet 10 mg PO DAILY 0RF cyanocobalamin (vitamin B-12) 1,000 mcg Tablet 1,000 mcg PO DAILY 0RF aspirin 81 mg Tablet,Delayed Release (Dr/Ec) 81 mg PO DAILY 0RF cholecalciferol (vitamin D3) 25 mcg (1,000 unit) Tablet 25 mcg PO DAILY 0RF diclofenac sodium 1 % Gel 2 g TOPICAL QID PRN (Reason: Mild Pain (Scale Score 1-4)) 0RF Rx Instructions: apply to single elbow, wrist or hand; for hand includes palm/fingers/back of hand diphenhydramine-acetaminophen [Tylenol PM Extra Strength] 25-500 mg Tablet 1 tab PO BEDTIME PRN (Reason: Sleep) 0RF Follow up/Referrals: Ross Sexton MD [Primary Care Provider] - Discharge Data Primary Care Provider: Ross Sexton V Quality VTE Deep Vein Thrombosis/Pulmonary Embolism Present on Admission: No
--- NOTE | 2021-05-25 15:00 | CM.DPNOTE ---
1440 Discharge paperwork reviewed and all questions answered, PIV x 2 d/c'd catheters intact. All belongings packed and with patient, escorted into private vehicle, no further patient contact at this time.
[2021-05-25 17:45] LABS: HIV 1 & 2 Ab/Ag 4th Gen Combo NEGATIVE (NEGATIVE)
== END 2021-05-25 14:40 | disposition home or self-care (01) | DRG 308 ==
LOC: ED 11:43 → ICU 13:45 → AC 05-29 07:47 → ICU 05-29 07:47
PROVIDERS: Admitting Provider Student in an Organized Health Care Education/Training Program; Emergency Provider Emergency Medicine; Family Provider Internal Medicine; PCP Internal Medicine; Referring Provider Emergency Medicine; Visit Provider Student in an Organized Health Care Education/Training Program
DX: I48.92 Unspecified atrial flutter (principal); J18.9 Pneumonia, unspecified organism; J84.89 Other specified interstitial pulmonary diseases; I10 Essential (primary) hypertension; E78.5 Hyperlipidemia, unspecified; E55.9 Vitamin D deficiency, unspecified; D69.6 Thrombocytopenia, unspecified; Z87.891 Personal history of nicotine dependence; Z20.822 Contact with and (suspected) exposure to COVID-19
CPT/HCPCS: 36415; 71046; 71275; 80048; 80053; 80074; 82550; 83605; 83735; 83880; 84132; 84145; 84484; 85025; 85610; 85730; 87040; 87389; 87633; 87635; 87797; 93005; 93306; 96365; 96367; 99285; C9803; J0153; J0696; J1644; J1650; J2060; J3475

== ENCOUNTER 2021-10-18 12:30 | Outpatient (RCR) | payer MEDICARE, SELFPAY ==
[2021-05-23 15:01] VITALS: BMI 24.3
== END 2021-10-18 15:30 ==
LOC: PUL 12:30
PROVIDERS: Family Provider Internal Medicine; PCP Internal Medicine; Referring Provider Internal Medicine; Visit Provider Internal Medicine
DX: J84.114 Acute interstitial pneumonitis (principal)
CPT/HCPCS: G0237; G0238

== ENCOUNTER → 2021-11-06 17:20 | Outpatient (CLI) | payer MEDICARE, SELFPAY ==
[2021-08-31 13:41] VITALS: BMI 24.3
[2021-11-06 18:01] LABS: Hematocrit 45.1 % (41-53); Hemoglobin 15.2 g/dL (13.5-17.5); Mean Corpuscular HGB Conc 33.7 % (30-36); Mean Corpuscular Hemoglobin 31.5 PG (26-34); Mean Corpuscular Volume 93.5 fL (80-100); Platelet Count 107 X10^3/uL (150-400); Red Blood Cell Count 4.83 X10^6/uL (4.5-5.9); Red Cell Distribution Width 15.9 % (11.6-14.8); White Blood Cell Count 7.5 X10^3/uL (4.5-11.0)
[2021-11-06 18:12] LABS: Alanine Aminotransferase 17 IU/L (<50); Albumin 4.3 g/dL (3.5-5.0); Albumin Globulin Ratio 1.3 (1.0-2.8); Alkaline Phosphatase 70 U/L (38-126); Aspartate Aminotransferase 25 IU/L (17-59); BUN Creatinine Ratio 29.1 (6-22); Bilirubin Total 1.2 mg/dL (0.2-1.3); Blood Urea Nitrogen 25 mg/dL (9-20); Calcium 9.6 mg/dL (8.4-10.2); Carbon Dioxide 29 mmol/L (22-32); Chloride 102 mmol/L (98-107); Cholesterol 110 mg/dL (140-199); Estimated Glomerular Filt Rate > 60 mL/min (>60); Globulin 3.2 g/dL (1.7-4.1); Glucose 100 mg/dL (80-110); HDL Cholesterol 56 mg/dL (40-60); HEMOLYSIS < 15 (0-50); LDL Cholesterol Calculated 32 mg/dL (<100); Potassium 4.1 mmol/L (3.4-5.1); Sodium 141 mmol/L (137-145); Total Protein 7.5 g/dL (6.3-8.2); Triglycerides 108 mg/dL (35-150)
[2021-11-06 18:41] LABS: TSH w/ Reflex to FT4 3.26 uIU/mL (0.47-4.68)
== END ==
PROVIDERS: Family Provider Internal Medicine; PCP Internal Medicine; Referring Provider Internal Medicine; Visit Provider Internal Medicine
DX: I10 Essential (primary) hypertension (principal); E78.2 Mixed hyperlipidemia; I48.3 Typical atrial flutter; Z79.01 Long term (current) use of anticoagulants
CPT/HCPCS: 36415; 80053; 80061; 84443; 85027; 93010

== ENCOUNTER 2021-11-06 21:56 | Observation (INO) | payer MEDICARE, SELFPAY ==
[2021-08-31 13:41] VITALS: BMI 24.3
[2021-11-06 21:56] VITALS: BP 154/100; PULSE 98; RESP 20; TEMP 36.9; O2SAT 94
--- NOTE | 2021-11-06 21:59 | DI.RAD.S_ITS ---
PROCEDURE: XR CHEST 1V INDICATIONS: SOB TECHNIQUE: One view of the chest was acquired. COMPARISON: CT, CT CHEST HIGH RESOLUTION, 05/09/2018, 11:58. [facility], CT, CT ANGIO CHEST PE PROTOCOL, 05/23/2021, 9:52. [facility], CR, XR CHEST 2V, 05/23/2021, 9:27. FINDINGS: Surgical changes and devices: None. Lungs and pleura: There are bilateral reticular interstitial opacities with a peripheral and basilar predominance redemonstrated, left greater than right. Findings are consistent with chronic interstitial lung disease as seen on the prior CT studies. Asymmetric left basilar opacities may reflect asymmetric chronic interstitial changes but acute consolidation cannot be excluded. No pleural effusions or pneumothorax. Mediastinum: Mediastinal contours appear unchanged. Heart size is enlarged. Bones and chest wall: No suspicious bony lesions. Overlying soft tissues appear unremarkable. IMPRESSION: 1. Findings consistent with chronic interstitial lung disease redemonstrated. 2. Asymmetric opacities in the left lung base may reflect asymmetric interstitial findings or superimposed acute process such as pneumonia. Dictated by: Chacho Lerner M.D. on 11/06/2021 at 23:07 Approved by: Chacho Lerner M.D. on 11/06/2021 at 23:10
--- NOTE | 2021-11-06 22:00 | ED_ITS ---
HPI - Chest Pain General Chief Complaint: Chest Pain Stated Complaint: Chest Pain Time Seen by Provider: 11/06/21 21:58 History of Present Illness HPI narrative: 81-year-old male nonsmoker with history of pulmonary fibrosis and atrial flutter is on anticoagulation and has been for quite some time, he denies missing any doses. He presents by EMS for evaluation of chest pain and pressure in his retrosternal area that started at about 5:00 a.m. this afternoon and has been present ever since. He denies obvious provocation or palliation nor any radiation. He is slightly short of breath. He was at his primary care provider's office this afternoon and there was discussion about pursuing an ablation with the cardiology group in [place]. He was found to be in a rapid atrial flutter by EMS, he has been given full-dose aspirin and has slight improvement in chest pressure after 2 nitro. He denies any other changes in medications or diet. He is otherwise well and free of complaint Related Data Home Medications Medication Instructions Recorded Confirmed aspirin 81 mg tablet,delayed 81 mg PO DAILY 05/23/21 11/06/21 release carvedilol 6.25 mg tablet 6.25 mg PO BID 05/23/21 11/06/21 cholecalciferol (vitamin D3) 25 25 mcg PO DAILY 05/23/21 11/06/21 mcg (1,000 unit) tablet cyanocobalamin (vitamin B-12) 1,000 mcg PO DAILY 05/23/21 11/06/21 1,000 mcg tablet rivaroxaban 20 mg tablet (Xarelto) 20 mg PO DAILY 09/01/21 11/06/21 diclofenac sodium 1 % topical gel 2 g TOPICAL DAILY PRN g 11/06/21 11/06/21 lisinopril 20 mg tablet 20 mg PO DAILY tab 11/06/21 11/06/21 Previous Rx's Medication Instructions Recorded diltiazem HCl 120 mg 120 mg PO DAILY 90 Days #90 cap 05/25/21 capsule,extended release 24 hr atorvastatin 10 mg tablet 10 mg PO BEDTIME #90 tab 09/07/21 Parking Permit... #1 ea 11/06/21 Allergies Allergy/AdvReac Type Severity Reaction Status Date / Time tamsulosin AdvReac Intermediate syncope Verified 11/06/21 11:19 rosuvastatin AdvReac Mild myalgias Verified 11/06/21 11:19 Review of Systems Review of Systems Narrative: GENERAL: Denies chills, fatigue, malaise, fever, sweats. HEENT: Denies sinus pain, ear pain, sore throat, difficulty swallowing, dizziness. RESPIRATORY: See HPI CARDIOVASCULAR: See HPI GASTROINTESTINAL: Denies nausea, vomiting, abdominal pain, diarrhea, constipation, melena. : Denies dysuria, frequency, incontinence, hematuria, urinary retention. MUSCULOSKELETAL: denies weakness, joint pain, or bony pain SKIN: Denies rash, skin lesions, or other NEUROLOGIC: Denies weakness, headache, numbness, change in speech, confusion, seizures, incoordination. PSYCHIATRIC: No concerning psychosocial issues. 12 point review of systems is negative except for those stated above Patient History Medical History Atrial fibrillation with rapid ventricular response BPH (benign prostatic hyperplasia) Chronic anticoagulation Chronic respiratory failure with hypoxia Contracture of palmar fascia Essential hypertension History of colon polyps History of prostate cancer Hypertension Male erectile dysfunction, unspecified Mixed hyperlipidemia Nonrheumatic aortic (valve) insufficiency Nonrheumatic aortic (valve) insufficiency Palmar fascial fibromatosis [dupuytren] Pulmonary fibrosis Thoracic aortic aneurysm without rupture Typical atrial flutter Social History household members: spouse Smoking Status: Never smoker alcohol intake: current Smoking Status: Never smoker alcohol intake frequency: holidays/special occasions only Substance Use Type: does not use Exam Narrative Exam Narrative: GENERAL: [81 year old patient appears stated age. Well-developed patient, in mild distress. HEAD: Atraumatic. Normocephalic. EYES: Pupils equal round and reactive. Extraocular motions intact. No scleral icterus. No injection or drainage. ENT: Nose without bleeding, purulent drainage. Throat without erythema, tonsillar hypertrophy or exudate. Airway patent. NECK: Trachea midline. Non tender CARDIOVASCULAR: Rapid but regular rhythm without murmurs, gallops, or rubs. RESPIRATORY: Clear to auscultation. Breath sounds equal bilaterally. No wheezes, rales, or rhonchi. GASTROINTESTINAL: Abdomen soft, non-tender, nondistended. EXTREMITIES: No edema or joint tenderness. BACK: Nontender without deformity or crepitance. No flank tenderness. NEURO: AOx3. SKIN: No rash or erythema of visible areas Initial Vital Signs Initial Vital Signs: Vital Signs Temperature 98.5 F 11/06/21 21:56 Pulse Rate 98 H 11/06/21 21:56 Respiratory Rate 20 11/06/21 21:56 Blood Pressure 154/100 H 11/06/21 21:56 Pulse Oximetry 94 11/06/21 21:56 Course Orders Ordered: ED Orders 11/06/21 21:59 XR chest 1V Stat EKG-12 Lead Stat 11/06/21 22:08 Complete Blood Count AUTO DIFF Stat Comprehensive Metabolic Panel Stat Lipase Stat NT-proBNP (BNP-Adult 18+) Stat Troponin & CK Cardiac Panel Stat 11/06/21 22:41 D Dimer Stat 11/06/21 23:50 EKG-12 Lead Stat 11/07/21 00:33 Troponin & CK Cardiac Panel Stat Sodium Chloride (Normal Saline 0.9%) 1,000 mls @ 150 mls/hr IV CONT ELIZABETH Last Infusion: 11/07/21 02:43 Dose: 0 mls/hr Documented by: Admin: 11/06/21 22:17 Dose: 150 mls/hr Documented by: [email or web address] Vital Signs Vital signs: Vital Signs - 8 hr 11/06/21 21:56 11/06/21 22:24 11/06/21 22:30 Temperature 98.5 F Pulse Rate 98 H 99 H 94 H Respiratory Rate 20 Blood Pressure 154/100 H 152/98 H Pulse Oximetry 94 94 94 11/06/21 23:00 11/06/21 23:30 11/07/21 00:00 Temperature Pulse Rate 92 H 89 83 Respiratory Rate Blood Pressure 146/95 H 154/88 H 147/96 H Pulse Oximetry 95 95 94 11/07/21 00:30 11/07/21 01:00 11/07/21 01:30 Temperature Pulse Rate 85 85 91 H Respiratory Rate Blood Pressure 160/93 H 147/89 H 151/88 H Pulse Oximetry 93 93 94 11/07/21 02:00 11/07/21 02:05 Temperature Pulse Rate 85 91 H Respiratory Rate Blood Pressure 171/98 H Pulse Oximetry 94 94 MDM - Chest Pain Lab Data Result diagrams: 11/06/21 22:08 11/06/21 22:08 Labs: Lab Results 0511/06/21 11/06/21 Range/Units 22:08 22:08 22:08 WBC 9.3 (4.5-11.0) X10^3/uL RBC 4.99 (4.5-5.9) X10^6/uL Hgb 15.6 (13.5-17.5) g/dL Hct 46.7 (41-53) % MCV 93.6 (80-100) fL MCH 31.2 (26-34) PG MCHC 33.3 (30-36) % RDW 16.2 H (11.6-14.8) % Plt Count 113 L (150-400) X10^3/uL Neut % (Auto) 80.1 H (50-75) % Lymph % (Auto) 7.8 L (25-40) % [place] % (Auto) 10.3 (3-14) % Eos % (Auto) 1.3 L (2-4) % Baso % (Auto) 0.5 (0-2) % Neut # (Auto) 7400 H (4214-4460) /uL Lymph # (Auto) 700 L (9067-8526) /uL [place] # (Auto) 1000 H (0-900) /uL Eos # (Auto) 100 (0-450) /uL Baso # (Auto) 0 (0-100) /uL D-Dimer (<230) ng/mL Sodium 141 (137-145) mmol/L Potassium 3.9 (3.4-5.1) mmol/L Chloride 101 (98-107) mmol/L Carbon Dioxide 26 (22-32) mmol/L BUN 20 (9-20) mg/dL Creatinine 0.82 (0.66-1.25) mg/dL Estimated GFR > 60 (>60) mL/min BUN/Creatinine Ratio 24.4 H (6-22) Glucose 100 (80-110) mg/dL Calcium 9.4 (8.4-10.2) mg/dL Total Bilirubin 1.2 (0.2-1.3) mg/dL AST 26 (17-59) IU/L ALT 16 (<50) IU/L Alkaline Phosphatase 67 (38-126) U/L Total Creatine Kinase 27 L (55-170) U/L CK-MB (CK-2) TNP CK-MB (CK-2) Rel Index TNP Troponin I 0.035 H (0.01-0.034) ng/mL NT-Pro-B Natriuret Pep 1400 H (<450) pg/mL Total Protein 7.6 (6.3-8.2) g/dL Albumin 4.3 (3.5-5.0) g/dL Globulin 3.3 (1.7-4.1) g/dL Albumin/Globulin Ratio 1.3 (1.0-2.8) Lipase 164 (23-300) U/L 11/06/21 11/07/21 Range/Units 22:41 00:33 WBC (4.5-11.0) X10^3/uL RBC (4.5-5.9) X10^6/uL Hgb (13.5-17.5) g/dL Hct (41-53) % MCV (80-100) fL MCH (26-34) PG MCHC (30-36) % RDW (11.6-14.8) % Plt Count (150-400) X10^3/uL Neut % (Auto) (50-75) % Lymph % (Auto) (25-40) % [place] % (Auto) (3-14) % Eos % (Auto) (2-4) % Baso % (Auto) (0-2) % Neut # (Auto) (1776-8251) /uL Lymph # (Auto) (8542-2083) /uL [place] # (Auto) (0-900) /uL Eos # (Auto) (0-450) /uL Baso # (Auto) (0-100) /uL D-Dimer 465 H (<230) ng/mL Sodium (137-145) mmol/L Potassium (3.4-5.1) mmol/L Chloride (98-107) mmol/L Carbon Dioxide (22-32) mmol/L BUN (9-20) mg/dL Creatinine (0.66-1.25) mg/dL Estimated GFR (>60) mL/min BUN/Creatinine Ratio (6-22) Glucose (80-110) mg/dL Calcium (8.4-10.2) mg/dL Total Bilirubin (0.2-1.3) mg/dL AST (17-59) IU/L ALT (<50) IU/L Alkaline Phosphatase (38-126) U/L Total Creatine Kinase 22 L (55-170) U/L CK-MB (CK-2) TNP CK-MB (CK-2) Rel Index TNP Troponin I 0.073 H (0.01-0.034) ng/mL NT-Pro-B Natriuret Pep (<450) pg/mL Total Protein (6.3-8.2) g/dL Albumin (3.5-5.0) g/dL Globulin (1.7-4.1) g/dL Albumin/Globulin Ratio (1.0-2.8) Lipase (23-300) U/L Imaging Data Chest x-ray: Radiologist's Impression: [address] [address] XRay Report Signed Patient: Fidel Evans MR#: [id number] : 1940 Acct:[id number] Age/Sex: 81 / M Date of Service: 11/06/21 Loc: ED Accession Number: [id number] ?? Procedure: XR chest 1V Ordering Provider: Micheal Connelly D.O. PROCEDURE:? XR CHEST 1V ? INDICATIONS:? SOB ? TECHNIQUE:? One view of the chest was acquired.? ? COMPARISON:? CT, CT CHEST HIGH RESOLUTION, 05/09/2018, 11:58.? [facility], CT, CT ANGIO CHEST PE PROTOCOL, 05/23/2021, 9:52.? [facility], CR, XR CHEST 2V, 05/23/2021, 9:27. ? FINDINGS:? ? Surgical changes and devices:? None.? ? Lungs and pleura:? There are bilateral reticular interstitial opacities with a peripheral and basilar predominance redemonstrated, left greater than right.? Findings are consistent with chronic interstitial lung disease as seen on the prior CT studi es.? Asymmetric left basilar opacities may reflect asymmetric chronic interstitial changes but acute consolidation cannot be excluded.? No pleural effusions or pneumothorax.? ? Mediastinum:? Mediastinal contours appear unchanged.? Heart size is enlarged.? ? Bones and chest wall:? No suspicious bony lesions.? Overlying soft tissues appear unremarkable.? ? IMPRESSION:? ? 1. Findings consistent with chronic interstitial lung disease redemonstrated. ? 2. Asymmetric opacities in the left lung base may reflect asymmetric interstitial findings or superimposed acute process such as pneumonia.? ? ? Dictated by: Chacho Lerner M.D. on 11/06/2021 at 23:07 ? ? Approved by: Chacho Lerner M.D. on 11/06/2021 at 23:10 ? MDM Narrative Medical decision making narrative: Patient had been having pain which resolved prior to his arrival. He had been given 2 NG by medics. Patient with EKG in NSR and unchanged from prior. Troponin did rise from 0.03 to 0.07 and during visit he's had no symptoms, but is resting comfortably. He requires hospitalization for trending of troponins and further evaluation. Discharge Plan Departure Patient Disposition: Admitted as Observation Clinical Impression: Chest pain Admit Date/Time: 11/07/21 02:18 Admit Provider: Jeanette Lee
[2021-11-06] MEDS: SODIUM CHLORIDE 0.9% 1,000 ML 150 ML IV (22:17)
[2021-11-06 22:19] LABS: Add Manual Diff / Slide Review NO; Basophils Absolute Auto 0 /uL (0-100); Basophils Percent Auto 0.5 % (0-2); Eosinophils Absolute Auto 100 /uL (0-450); Eosinophils Percent Auto 1.3 % (2-4); Hematocrit 46.7 % (41-53); Hemoglobin 15.6 g/dL (13.5-17.5); Lymphocytes Absolute Auto 700 /uL (1100-4500); Lymphocytes Percent Auto 7.8 % (25-40); Mean Corpuscular HGB Conc 33.3 % (30-36); Mean Corpuscular Hemoglobin 31.2 PG (26-34); Mean Corpuscular Volume 93.6 fL (80-100); Monocytes Absolute Auto 1000 /uL (0-900); Monocytes Percent Auto 10.3 % (3-14); Neutrophils Absolute Auto 7400 /uL (1500-7000); Neutrophils Percent Auto 80.1 % (50-75); Platelet Count 113 X10^3/uL (150-400); Red Blood Cell Count 4.99 X10^6/uL (4.5-5.9); Red Cell Distribution Width 16.2 % (11.6-14.8); White Blood Cell Count 9.3 X10^3/uL (4.5-11.0)
[2021-11-06 22:24] VITALS: PULSE 99; O2SAT 94
[2021-11-06 22:28] LABS: Alanine Aminotransferase 16 IU/L (<50); Albumin 4.3 g/dL (3.5-5.0); Albumin Globulin Ratio 1.3 (1.0-2.8); Alkaline Phosphatase 67 U/L (38-126); Aspartate Aminotransferase 26 IU/L (17-59); BUN Creatinine Ratio 24.4 (6-22); Bilirubin Total 1.2 mg/dL (0.2-1.3); Blood Urea Nitrogen 20 mg/dL (9-20); Calcium 9.4 mg/dL (8.4-10.2); Carbon Dioxide 26 mmol/L (22-32); Chloride 101 mmol/L (98-107); Creatine Kinase 27 U/L (55-170); Estimated Glomerular Filt Rate > 60 mL/min (>60); Globulin 3.3 g/dL (1.7-4.1); Glucose 100 mg/dL (80-110); HEMOLYSIS 16 (0-50); Lipase 164 U/L (23-300); Potassium 3.9 mmol/L (3.4-5.1); Sodium 141 mmol/L (137-145); Total Protein 7.6 g/dL (6.3-8.2)
[2021-11-06 22:30] VITALS: BP 152/98; PULSE 94; O2SAT 94
[2021-11-06 22:37] LABS: NT-proBNP (BNP-Adult 18+) 1400 pg/mL (<450)
[2021-11-06 22:40] LABS: Troponin I 0.035 ng/mL (0.01-0.034)
[2021-11-06 22:50] LABS: D Dimer 465 ng/mL (<230)
[2021-11-06 23:00] VITALS: BP 146/95; PULSE 92; O2SAT 95
[2021-11-06 23:30] VITALS: BP 154/88; PULSE 89; O2SAT 95
[2021-11-07] VITALS (17 sets, daily range): BP systolic 135–171; BP diastolic 69–101; PULSE 64–155; RESP 16–20; TEMP 36.2–37.2; O2SAT 92–99; BMI 24.3; BMI 24.2
[2021-11-07 00:51] LABS: Creatine Kinase 22 U/L (55-170)
[2021-11-07 01:04] LABS: Troponin I 0.073 ng/mL (0.01-0.034)
[2021-11-07 02:57] LABS: COVID19 -Nasal RAPID Negative (Negative)
--- NOTE | 2021-11-07 04:29 | PM.HP.1 ---
History of Present Illness History of Present Illness Date Patient Seen: 11/07/21 Time Patient Seen: 04:00 Chief complaint: Chest Pain Narrative: Fidel Evans is an 81-year-old male with a history of atrial flutter, anticoagulation on Xarelto, hypertension, hyperlipidemia, aortic valve insufficiency as well as thoracic aortic aneurysm, was in his usual state of health and being drawn for labs today when he developed sudden onset pain across the mid back area. He had seen Dr. Nguyen, his PCP earlier today and was sent to the labs for his annual labs. He then developed chest pressure after he returned home. He does have chronic shortness of breath due to pulmonary fibrosis, he had denies having headache, he is not aware that he has atrial flutter except for when he was hospitalized previously, he denies nausea vomiting sweats or chills, he does have a history do patrons contractures, and does not detect when he is having atrial flutter. He is due to see Dr. Zepeda senior dynamics crm developer for a cardiac ablation. He also states that he has a 5 cm thoracic aneurysm that they are watching. He had an echocardiogram done on May 23 of last year with an EF of 55-60% an a severely dilated left atrium. Also noted [id number] mitral regurgitation and moderate tricuspid regurgitation, a mildly dilated aortic root with severely enlarged ascending aorta. Chest x-ray was read as findings consistent with chronic interstitial lung disease, and asymmetric opacities in left lung base suspicious of pneumonia. He is afebrile, blood pressure 166/96, heart rate 89, respiratory rate 19, oxygen saturation of 92% on room air, he weighs 78.8 kg with a BMI of 24.3. WBC is largely within normal limits but his platelet count is a 113, D-dimer was mildly elevated at 465, his chemistries were essentially normal and is proBNP was 1400, troponin was 0.35 increasing to 0.073, lipase is within normal limits and COVID-19 PCR is negative. Patient History Medical History Atrial fibrillation with rapid ventricular response BPH (benign prostatic hyperplasia) Chronic anticoagulation Chronic respiratory failure with hypoxia Contracture of palmar fascia Essential hypertension History of colon polyps History of prostate cancer Hypertension Male erectile dysfunction, unspecified Mixed hyperlipidemia Nonrheumatic aortic (valve) insufficiency Nonrheumatic aortic (valve) insufficiency Palmar fascial fibromatosis [dupuytren] Pulmonary fibrosis Thoracic aortic aneurysm without rupture Typical atrial flutter Family & Social History Family History (Updated 11/07/21 @ 04:39 by JOSE Reed) Mother Heart disease Father Medical history unknown Social History: household members spouse Prior Living Arrangements House Safety & Behavioral: Feels Safe in Current Yes Environment Tobacco & Substance use: Smoking Status Never smoker alcohol intake current alcohol intake frequency holiday/special occasion Substance Use Type does not use Meds Home Medications and Allergies Home Medications Medication Instructions Recorded Confirmed Type aspirin 81 mg tablet,delayed 81 mg PO DAILY 05/23/21 11/06/21 History release carvedilol 6.25 mg tablet 6.25 mg PO BID 05/23/21 11/06/21 History cholecalciferol (vitamin D3) 25 25 mcg PO DAILY 05/23/21 11/06/21 History mcg (1,000 unit) tablet cyanocobalamin (vitamin B-12) 1,000 mcg PO DAILY 05/23/21 11/06/21 History 1,000 mcg tablet diltiazem HCl 120 mg 120 mg PO DAILY 90 Days #90 cap 05/25/21 11/06/21 Rx capsule,extended release 24 hr rivaroxaban 20 mg tablet (Xarelto) 20 mg PO DAILY 09/01/21 11/06/21 History atorvastatin 10 mg tablet 10 mg PO BEDTIME #90 tab 09/07/21 11/06/21 Rx Parking Permit... #1 ea 11/06/21 11/06/21 Rx diclofenac sodium 1 % topical gel 2 g TOPICAL DAILY PRN g 11/06/21 11/06/21 History lisinopril 20 mg tablet 20 mg PO DAILY tab 11/06/21 11/06/21 History Allergies Allergy/AdvReac Type Severity Reaction Status Date / Time tamsulosin AdvReac Intermediate syncope Verified 11/06/21 11:19 rosuvastatin AdvReac Mild myalgias Verified 11/06/21 11:19 Review of Systems Review of Systems ROS: Yes All systems reviewed with the patient and are negative except as otherwise documented Exam Vital Signs (past 8 hours): - 11/06/21 21:56 11/06/21 22:24 11/06/21 22:30 Temperature 98.5 F Pulse Rate 98 H 99 H 94 H Respiratory Rate 20 Blood Pressure 154/100 H 152/98 H Pulse Oximetry 94 94 94 11/06/21 23:00 11/06/21 23:30 11/07/21 00:00 Temperature Pulse Rate 92 H 89 83 Respiratory Rate Blood Pressure 146/95 H 154/88 H 147/96 H Pulse Oximetry 95 95 94 11/07/21 00:30 11/07/21 01:00 11/07/21 01:30 Temperature Pulse Rate 85 85 91 H Respiratory Rate Blood Pressure 160/93 H 147/89 H 151/88 H Pulse Oximetry 93 93 94 11/07/21 02:00 11/07/21 02:05 Temperature Pulse Rate 85 91 H Respiratory Rate Blood Pressure 171/98 H Pulse Oximetry 94 94 Oxygen Delivery Method Room Air Narrative Exam Narrative: Gen: Alert, oriented, well-developed 81 y.o. male, NAD HEENT: normocephalic, atraumatic, conjunctiva clear, sclera non-icteric, oral mucosa pink and moist Neck: supple, full ROM, no JVD, trachea is midline Resp: Lungs CTA, non-labored breathing CV: RRR, no murmur or rubs Abd: soft, non-tender, normoactive BTs Skin: Bruising on arms, no lesions or rashes, dry and intact Neuro: Alert and oriented X 4 w/no focal deficits. Speech clear and coherent. Extremities: moves all 4 extremities, is ambulatory, negative Frank?s sign Psyche: normal mood and affect. Objective Labs Result Diagrams: 11/06/21 22:08 11/06/21 22:08 Labs: Laboratory Results - last 24 hr 11/06/21 11/06/21 11/06/21 22:08 22:08 22:08 WBC 9.3 RBC 4.99 Hgb 15.6 Hct 46.7 MCV 93.6 MCH 31.2 MCHC 33.3 RDW 16.2 H Plt Count 113 L Neut % (Auto) 80.1 H Lymph % (Auto) 7.8 L [place] % (Auto) 10.3 Eos % (Auto) 1.3 L Baso % (Auto) 0.5 Neut # (Auto) 7400 H Lymph # (Auto) 700 L [place] # (Auto) 1000 H Eos # (Auto) 100 Baso # (Auto) 0 D-Dimer Sodium 141 Potassium 3.9 Chloride 101 Carbon Dioxide 26 BUN 20 Creatinine 0.82 Estimated GFR > 60 BUN/Creatinine Ratio 24.4 H Glucose 100 Calcium 9.4 Total Bilirubin 1.2 AST 26 ALT 16 Alkaline Phosphatase 67 Total Creatine Kinase 27 L CK-MB (CK-2) TNP CK-MB (CK-2) Rel Index TNP Troponin I 0.035 H NT-Pro-B Natriuret Pep 1400 H Total Protein 7.6 Albumin 4.3 Globulin 3.3 Albumin/Globulin Ratio 1.3 Lipase 164 SARS-CoV-2 (PCR) 11/06/21 11/07/21 11/07/21 22:41 00:33 02:33 WBC RBC Hgb Hct MCV MCH MCHC RDW Plt Count Neut % (Auto) Lymph % (Auto) [place] % (Auto) Eos % (Auto) Baso % (Auto) Neut # (Auto) Lymph # (Auto) [place] # (Auto) Eos # (Auto) Baso # (Auto) D-Dimer 465 H Sodium Potassium Chloride Carbon Dioxide BUN Creatinine Estimated GFR BUN/Creatinine Ratio Glucose Calcium Total Bilirubin AST ALT Alkaline Phosphatase Total Creatine Kinase 22 L CK-MB (CK-2) TNP CK-MB (CK-2) Rel Index TNP Troponin I 0.073 H NT-Pro-B Natriuret Pep Total Protein Albumin Globulin Albumin/Globulin Ratio Lipase SARS-CoV-2 (PCR) Negative Assessment & Plan Assessment & Plan narrative: Mike Evans is placed into observation for further monitoring of cardiac enzymes for chest pain. 1. Chest pain r/o ACS, acute, present on admission ? Start ASA 81 mg ? Trend troponin X 3 2. Hypertension ? Start/continue 3. Atrial flutter/fibrillation, chronic Anticoagulation with home dose of Xarelto 20 mg daily HLD ? Lipid panel done outpatient on 10/07, indicates good control ? Start/continue atorvastatin 40 mg po at bedtime Risk stratification ? Fasting lipid panel scheduled for 0500 labs ? A1c pending VTE Prophylaxis: Wells risk score 0 Bilateral SCDs Patient is currently anticoagulated on Xarelto. Patient is placed into observation as his stay is not expected to exceed 2 midnights. FEN: IV fluids: saline lock, diet: heart healthy, labs: CBC, C/BMP, liver enzymes, Mag, PT/INR Consultants None Recommend cardiology consult if troponin doubles Dispo: unknown at this time Code status: DNR/DNI as discussed with the patient who identifies spouse, Jeanette as his surrogate and POA. [X] I have utilized all available immediate resources to obtain, update, or review of the patient's current medications COVID-19 COVID-19 status: Negative Result date/Date tested (Pos, Neg/Pending): 11/07/21 Quality VTE Deep Vein Thrombosis/Pulmonary Embolism Present on Admission: No MIPS - Admit I confirm the patient?s Advance Care Plan is present, Code status is documented, Surrogate decision maker is in patient?s record [If Yes, STOP here]: Yes MIPS - DC The patient has current or prior documentation of left ventricular ejection fraction (LVEF) less than 40%, or moderate or severely depressed left ventricular systolic function.: No
[2021-11-07 05:33] LABS: Alanine Aminotransferase 16 IU/L (<50); Albumin 4.2 g/dL (3.5-5.0); Albumin Globulin Ratio 1.4 (1.0-2.8); Alkaline Phosphatase 59 U/L (38-126); Aspartate Aminotransferase 25 IU/L (17-59); BUN Creatinine Ratio 27.1 (6-22); Bilirubin Total 1.6 mg/dL (0.2-1.3); Bilirubin Unconjugated 1.6 mg/dL (0.0-1.1); Blood Urea Nitrogen 19 mg/dL (9-20); Carbon Dioxide 26 mmol/L (22-32); Chloride 104 mmol/L (98-107); Estimated Glomerular Filt Rate > 60 mL/min (>60); Globulin 2.9 g/dL (1.7-4.1); Glucose 105 mg/dL (80-110); HEMOLYSIS < 15 (0-50); Magnesium 1.5 mg/dL (1.6-2.3); Potassium 3.8 mmol/L (3.4-5.1); Sodium 140 mmol/L (137-145); Total Protein 7.1 g/dL (6.3-8.2)
[2021-11-07 05:42] LABS: Add Manual Diff / Slide Review NO; Basophils Absolute Auto 0 /uL (0-100); Basophils Percent Auto 0.3 % (0-2); Eosinophils Absolute Auto 0 /uL (0-450); Eosinophils Percent Auto 0.5 % (2-4); Hematocrit 45.2 % (41-53); Lymphocytes Absolute Auto 400 /uL (1100-4500); Lymphocytes Percent Auto 5.1 % (25-40); Mean Corpuscular HGB Conc 33.3 % (30-36); Mean Corpuscular Hemoglobin 31.2 PG (26-34); Mean Corpuscular Volume 93.6 fL (80-100); Monocytes Absolute Auto 1200 /uL (0-900); Monocytes Percent Auto 14.4 % (3-14); Neutrophils Absolute Auto 6700 /uL (1500-7000); Neutrophils Percent Auto 79.7 % (50-75); Platelet Count 102 X10^3/uL (150-400); Red Blood Cell Count 4.83 X10^6/uL (4.5-5.9); Red Cell Distribution Width 15.9 % (11.6-14.8); White Blood Cell Count 8.4 X10^3/uL (4.5-11.0)
[2021-11-07 05:43] LABS: Troponin I 0.072 ng/mL (0.01-0.034)
[2021-11-07] MEDS: FUROSEMIDE 40 MG/4 ML VIAL 20 MG IV (08:02)
[2021-11-07] MEDS: MAGNESIUM SULFATE 2 GM/50 ML PIGGYBACK IV (08:04)
[2021-11-07] MEDS: lisinopriL 20 MG TABLET PO (08:46)
[2021-11-07] MEDS: RIVAROXABAN 10 MG TABLET 20 MG PO (08:46)
[2021-11-07] MEDS: carvediloL 3.125 MG TABLET 6.25 MG PO ×2 (08:46→12:18)
[2021-11-07] MEDS: dilTIAZem CD 120 MG CAP PO (08:46)
[2021-11-07] MEDS: ASPIRIN EC 81 MG TABLET PO (08:47)
--- NOTE | 2021-11-07 08:59 | CM.DANOTE ---
DCP: Case received, EMR reviewed and met with patient. Spouse, Jeanette, was also at bedside. Introduced self and role. Was able to obtain information regarding patient's baseline activity level at home prior to hospitalization. DCP assessment completed with information currently available. Patient is an 81 year old male who admitted early this morning to the care of the hospitalist team. PCP: Dr. Sexton. Payer: confirmed: Medicare/ [employer]. Patient came to the hospital via ambulance secondary to having sudden onset of pain across his mid back area. According to notes, patient had seen Dr. Sexton earlier in the day, and was sent for labs. He then developed chest pressure. Patient has chronic shortness of breath secondary to his having pulmonary fibrosis. Patient is on home oxygen. He also has history of atrial fluter, and is on anticoagulation medication. Patient is here for cardiac observation. Met with patient. He was laying in bed, spouse, Jeanette, was in the room. Patient is alert and oriented, confirmed that he does have oxygen at home. He is independent at his baseline. P: DCP to continue to follow for any needs. Patient should be able to go home when he is deemed medically stable. Naomi Evans RN/Reel Cutter Discharge Planning/Care Management CM Discharge Assessment Start: 11/07/21 08:57 Freq: Status: Active Protocol: Document 11/07/21 08:57 (Rec: 11/07/21 08:59 [id number]) Discharge Planning Assessment Assigned Gas Plant Specialist Naomi Evans RN/Reel Cutter Advance Directives? Yes Advance Directives on File No History Provided By Patient,Medical Record Prior Living Arrangements House Household Members spouse Type of transporation used prior to Relies on Others admit Independent with ADL's Yes Is patient alert and oriented? Yes Needs Assistance With Home Chores / Shopping Caregiver for Another No Community Services used prior to Oxygen Therapy admission: Patient/Family Preference Home with Home Health Barriers to Discharge No Comment Patient has supportive spouse . Discharge Plan Home Transportation Arrangement Spouse and spouse's Dtr are available for transport at d/c . Referrals Initiated None needed Whiteboard Updated in Patient Room with Yes name and ext. # of Gas Plant Specialist Review Status In Process Next Review Type Continued Stay Review
[2021-11-07] MEDS: dilTIAZem 5 MG/ML SDV 10 MG IV (12:18)
--- NOTE | 2021-11-07 13:53 | DI.ECHO.S_ITS ---
[facility]---------[facility] +---------+ : : [address] : [address] : : : : [id number] : : : : Phone: [phone]+ Echocardiogram Report + + :Name: MARCO ANTONIO MEDEROS Study Date: 11/08/2021 Height: 71 in : :[facility] ReadingLocation: Weight: 173 lb: : Gender: Male BSA: 2.0 m2 : :: 1940 Age: 81 yrs : :Reason For Study: CHEST PAIN : :Ordering Physician: LUCAS, : :DELIA MOORE Performed By: Marleen Parnell : :Referring: DELIA ZAVALA : + + Interpretation Summary The left ventricle is normal in size. Left ventricular systolic function is normal. The ejection fraction is estimated to be 55-60%. LVEF has not changed. The right ventricle is normal in size and function. The interventricular septum is flattened, consistent with a right ventricular pressure overload condition. The right ventricular systolic pressure is estimated to be at least 62 mmHg based on an estimated right atrial pressure of 3 mm Hg. Compared to the prior echo exam, there has been no change in the severity of pulmonary hypertension. The left atrial size is normal. Right atrial size is normal. There is mild to moderate mitral regurgitation. There is mild to moderate tricuspid regurgitation. The aortic root is mildly dilated. The ascending aorta is severely enlarged. The aortic arch is moderate-severely enlarged. Ascending aortic dimensions have increased from 5.0 to 5.6 cm. There is a small and new pericardial effusion that is circumferential. Procedure: A two-dimensional transthoracic echocardiogram with color flow and Doppler was performed. The study quality was technically adequate. Comparison is made with the echocardiogram of 05/25/2021. The heart rate ranged between 80-106 bpm during the study. EKG artifact throughout. Left Ventricle: The left ventricle is normal in size. Left ventricular wall thickness is mildly increased. Left ventricular systolic function is normal. The ejection fraction is estimated to be 55-60%. The interventricular septum is flattened, consistent with a right ventricular pressure overload condition. Diastolic function could not be accurately assessed due to unobtainable data. Right Ventricle: The right ventricle is normal in size and function. Atria: The left atrial size is normal. Right atrial size is normal. There is no Doppler evidence for an interatrial shunt. Mitral Valve: There is mild mitral annular calcification. There is mild to moderate mitral regurgitation. Aortic Valve: The aortic valve is trileaflet. The aortic valve opens well. There is trace aortic regurgitation. Tricuspid Valve: The tricuspid valve leaflets are thin and pliable. There is mild to moderate tricuspid regurgitation. The right ventricular systolic pressure is estimated to be at least 62 mmHg based on an estimated right atrial pressure of 3 mm Hg. Compared to the prior echo exam, there has been no change in the severity of pulmonary hypertension. Pulmonic Valve: The pulmonic valve leaflets are thin and pliable; valve motion is normal. There is trace pulmonic regurgitation. Great Vessels: The aortic root is mildly dilated. The ascending aorta is severely enlarged. The aortic arch is moderate-severely enlarged. The IVC is of normal diameter and collapses greater than 50% with a sniff. This suggests a low right atrial pressure of 3 mm Hg. Pericardium/ Pleura There is a small pericardial effusion that is circumferential. There are no echocardiographic indications of cardiac tamponade. There is no pleural effusion. MMode/2D Measurements & Calculations LVIDd: 5.0 cm LVOT diam: 2.1 cm LVIDs: 3.4 cm Ao root diam: 3.8 cm FS: 32.7 % asc Aorta Diam: 5.5 cm IVSd: 1.1 cm Ao Arch Diam (Prox Trans): 4.8 cm LVPWd: 0.97 cm LV lopez. diameter/BSA (cm/m^2): 2.5 LV sys. diameter/BSA (cm/m^2): 1.7 LA A2 area: 21.9 cm2 RA long axis: 6.9 cm LA A4 area: 23.7 cm2 RA area: 20.3 cm2 LA length (vol): 6.9 cm RA vol: 51.1 ml LA vol: 64.0 ml RA : 25.8 ml/m2 LA vol index: 32.3 ml/m2 IVC diam: 1.9 cm RVD1 (basal): 3.5 cm RVD2 (mid): 3.9 cm TAPSE: 1.7 cm Doppler Measurements & Calculations Ao V2 max: 149.4 cm/sec LVOT Max Jerry: 83.6 cm/sec Ao V2 mean: 104.2 cm/sec LV V1 max P.8 mmHg Ao max P.0 mmHg LV V1 VTI: 14.9 cm Ao mean P.8 mmHg HERBIE(I,D): 2.0 cm2 Ao V2 VTI: 25.4 cm HERBIE(V,D): 1.9 cm2 sev ratio: 0.59 HERBIE indexed to BSA (cm^2/m^2): 1.0 MV E max jerry: 93.4 cm/sec TR max jerry: 384.8 cm/sec MV A max jerry: 42.7 cm/sec TR max P.2 mmHg MV E/A: 2.2 PA V2 max: 103.8 cm/sec Med Peak E' Jerry: 5.6 cm/sec PA V2 mean: 71.5 cm/sec E/E' med: 16.8 PA mean P.3 mmHg Lat Peak E' Jerry: 8.4 cm/sec PA pr(Accel): 41.3 mmHg E/E' lat: 11.1 E/e' average: 13.9 MV dec time: 0.19 sec SV(LVOT): 51.5 ml Reading Physician:09:20 AM
--- NOTE | 2021-11-07 16:09 | P.PN_ITS ---
Subjective Subjective Date Patient Seen: 11/07/21 Time Patient Seen: 16:09 Interval history: This is a brief update note. This is an 81-year-old male with past medical history of hypertension, hyperlipidemia, and atrial fibrillation who was admitted with chest pain. This morning he developed rapid AFib with RVR with a rate into the 150s and 160s. This was improved with a single dose of IV diltiazem and increasing his home carvedilol. Will continue to optimize rate control at this time. Echocardiogram was delayed today as the patient was in rapid AFib, but will be tomorrow. Will need to optimize rate control prior to discharge home. He did have a low magnesium which was repleted today and will check again tomorrow. He has a planned follow-up with an life enrichment specialist as an outpatient already. Exam Vital Signs (past 8 hours): - 11/07/21 08:46 11/07/21 09:42 11/07/21 09:49 Temperature 98.1 F Pulse Rate 90 133 H Respiratory Rate 16 Blood Pressure 146/101 H 135/79 Pulse Oximetry 98 97 11/07/21 12:00 11/07/21 12:18 Temperature 98.1 F Pulse Rate 133 H 155 H Respiratory Rate 20 Blood Pressure 135/79 137/69 Pulse Oximetry 97 Oxygen Delivery Method Nasal Cannula Oxygen Flow Rate 2 Objective Labs Result Diagrams: 11/07/21 05:57 11/07/21 05:00 Labs: Laboratory Results - last 24 hr 11/06/21 11/06/21 11/06/21 22:08 22:08 22:08 WBC 9.3 RBC 4.99 Hgb 15.6 Hct 46.7 MCV 93.6 MCH 31.2 MCHC 33.3 RDW 16.2 H Plt Count 113 L Neut % (Auto) 80.1 H Lymph % (Auto) 7.[address] [place] % (Auto) 10.3 Eos % (Auto) 1.3 L Baso % (Auto) 0.5 Neut # (Auto) 7400 H Lymph # (Auto) [address] [place] [place] # (Auto) 1000 H Eos # (Auto) 100 Baso # (Auto) 0 D-Dimer Sodium 141 Potassium 3.9 Chloride 101 Carbon Dioxide 26 BUN 20 Creatinine 0.82 Estimated GFR > 60 BUN/Creatinine Ratio 24.4 H Glucose 100 Hemoglobin A1c Calcium 9.4 Magnesium Total Bilirubin 1.2 Conjugated Bilirubin Unconjugated Bilirubin AST 26 ALT 16 Alkaline Phosphatase 67 Total Creatine Kinase 27 L CK-MB (CK-2) TNP CK-MB (CK-2) Rel Index TNP Troponin I 0.035 H NT-Pro-B Natriuret Pep 1400 H Total Protein 7.6 Albumin 4.3 Globulin 3.3 Albumin/Globulin Ratio 1.3 Lipase 164 SARS-CoV-2 (PCR) 11/06/21 11/07/21 11/07/21 22:41 00:33 02:33 WBC RBC Hgb Hct MCV MCH MCHC RDW Plt Count Neut % (Auto) Lymph % (Auto) [place] % (Auto) Eos % (Auto) Baso % (Auto) Neut # (Auto) Lymph # (Auto) [place] # (Auto) Eos # (Auto) Baso # (Auto) D-Dimer 465 H Sodium Potassium Chloride Carbon Dioxide BUN Creatinine Estimated GFR BUN/Creatinine Ratio Glucose Hemoglobin A1c Calcium Magnesium Total Bilirubin Conjugated Bilirubin Unconjugated Bilirubin AST ALT Alkaline Phosphatase Total Creatine Kinase 22 L CK-MB (CK-2) TNP CK-MB (CK-2) Rel Index TNP Troponin I 0.073 H NT-Pro-B Natriuret Pep Total Protein Albumin Globulin Albumin/Globulin Ratio Lipase SARS-CoV-2 (PCR) Negative 11/07/21 11/07/21 11/07/21 05:00 05:00 05:00 WBC RBC Hgb Hct MCV MCH MCHC RDW Plt Count Neut % (Auto) Lymph % (Auto) [place] % (Auto) Eos % (Auto) Baso % (Auto) Neut # (Auto) Lymph # (Auto) [place] # (Auto) Eos # (Auto) Baso # (Auto) D-Dimer Sodium 140 Potassium 3.8 Chloride 104 Carbon Dioxide 26 BUN 19 Creatinine 0.70 Estimated GFR > 60 BUN/Creatinine Ratio 27.1 H Glucose 105 Hemoglobin A1c 5.0 Calcium 9.0 Magnesium 1.5 L Total Bilirubin 1.6 H Conjugated Bilirubin 0.0 Unconjugated Bilirubin 1.6 H AST 25 ALT 16 Alkaline Phosphatase 59 Total Creatine Kinase CK-MB (CK-2) CK-MB (CK-2) Rel Index Troponin I 0.072 H NT-Pro-B Natriuret Pep Total Protein 7.1 Albumin 4.2 Globulin 2.9 Albumin/Globulin Ratio 1.4 Lipase SARS-CoV-2 (PCR) 11/07/21 05:57 WBC 8.4 RBC 4.83 Hgb 15.0 Hct 45.2 MCV 93.6 MCH 31.2 MCHC 33.3 RDW 15.9 H Plt Count 102 L Neut % (Auto) 79.7 H Lymph % (Auto) 5.[address] [place] % (Auto) 14.4 H Eos % (Auto) 0.5 L Baso % (Auto) 0.3 Neut # (Auto) 6700 Lymph # (Auto) [address] [place] # (Auto) 1200 H Eos # (Auto) 0 Baso # (Auto) 0 D-Dimer Sodium Potassium Chloride Carbon Dioxide BUN Creatinine Estimated GFR BUN/Creatinine Ratio Glucose Hemoglobin A1c Calcium Magnesium Total Bilirubin Conjugated Bilirubin Unconjugated Bilirubin AST ALT Alkaline Phosphatase Total Creatine Kinase CK-MB (CK-2) CK-MB (CK-2) Rel Index Troponin I NT-Pro-B Natriuret Pep Total Protein Albumin Globulin Albumin/Globulin Ratio Lipase SARS-CoV-2 (PCR) PFSH Medical History Atrial fibrillation with rapid ventricular response BPH (benign prostatic hyperplasia) Chronic anticoagulation Chronic respiratory failure with hypoxia Contracture of palmar fascia Essential hypertension History of colon polyps History of prostate cancer Hypertension Male erectile dysfunction, unspecified Mixed hyperlipidemia Nonrheumatic aortic (valve) insufficiency Nonrheumatic aortic (valve) insufficiency Palmar fascial fibromatosis [dupuytren] Pulmonary fibrosis Thoracic aortic aneurysm without rupture Typical atrial flutter Family History (Updated 11/07/21 @ 04:39 by JOSE Reed) Mother Heart disease Father Medical history unknown Social History household members: spouse Smoking Status: Never smoker alcohol intake: current Assessment & Plan Time Spent With Patient Critical Care time: I spent a total of [] minutes of critical care time on this patient's care today; this time is exclusive of procedural time. Quality VTE Deep Vein Thrombosis/Pulmonary Embolism Present on Admission: No
--- NOTE | 2021-11-07 16:17 | PC.NURSE ---
Pt is A&OX3, VSS, afebrile this a.m. Placed on 2 LNC for 89% on RA and he states he uses home 02. He denies any further chest discomfort or feeling palpitations during the shift although his HR increases above 155 and sustains there in afib. He reports not having a history of AFIB prior but aware of having a history of a flutter. Pt initially requests to have a ayala catheter due to voiding small amounts frequently, however bladder scan =<8ml. Per order patient received an increase dose of carvedilol and a 10mg one time dose of IV diltiazem with good effect. HR remains in the 80's this afternoon and evening. Echo postponed until tomorrow for more regular heart rate. Continuous monitoring.
[2021-11-07] MEDS: ATORVASTATIN 20 MG TABLET 10 MG PO (21:29)
[2021-11-07] MEDS: carvediloL 12.5 MG TABLET PO (21:29)
[2021-11-07] MEDS: SODIUM CHLORIDE 0.9% FLUSH 10 ML IV (21:30)
[2021-11-07] MEDS: MELATONIN 3 MG TABLET 6 MG PO (21:37)
[2021-11-07] MEDS: ACETAMINOPHEN 325 MG TABLET 650 MG PO (21:37)
--- NOTE | 2021-11-08 00:37 | PC.NURSE ---
Addendum entered by Thelma Tse R.N. 11/08/21 01:41: correction to previous charting: patient is on oxygen at 2L/min per NC as per home regimen Original Note: Patient is alert and oriented. Breath sounds with coarse crackles in bilateral bases; RA sat 99%. HRR w/telemetry reading of SR. BP elevated at 146/91. Denied nausea. BT present and abdomen is soft. Denied dysuria or frequency but states he has some chronic urgency and occasional incontinence. Able to turn self in bed. Gait not assessed but patient denies weakness/unsteadiness and denied use of AD at home although did state he uses a walking stick when outside. Had bilateral calf SCD's on at shift change but requested they be removed for the night; reminded to ankle wave when awake. Denied pain but requested Tylenol PM for sleep. Jesus GARCIA, informed and discussed use of Melatonin with patient which she then ordered; medicated with Melatonin along with Tylenol per patient request.
[2021-11-08 02:00] VITALS: BP 136/84; PULSE 64; RESP 19; TEMP 36.4; O2SAT 99
[2021-11-08 05:55] VITALS: BP 129/87; PULSE 79; RESP 18; TEMP 36.8; O2SAT 97
[2021-11-08 08:23] LABS: Add Manual Diff / Slide Review NO; Basophils Absolute Auto 0 /uL (0-100); Basophils Percent Auto 0.4 % (0-2); Eosinophils Absolute Auto 0 /uL (0-450); Eosinophils Percent Auto 0.2 % (2-4); Hematocrit 41.8 % (41-53); Lymphocytes Absolute Auto 500 /uL (1100-4500); Lymphocytes Percent Auto 4.2 % (25-40); Mean Corpuscular HGB Conc 33.5 % (30-36); Mean Corpuscular Hemoglobin 31.2 PG (26-34); Mean Corpuscular Volume 93.1 fL (80-100); Monocytes Absolute Auto 2100 /uL (0-900); Monocytes Percent Auto 18.3 % (3-14); Neutrophils Absolute Auto 8600 /uL (1500-7000); Neutrophils Percent Auto 76.9 % (50-75); Platelet Count 89 X10^3/uL (150-400); Red Blood Cell Count 4.49 X10^6/uL (4.5-5.9); White Blood Cell Count 11.2 X10^3/uL (4.5-11.0)
[2021-11-08 08:32] VITALS: BP 155/99; PULSE 81; RESP 19; TEMP 36.3; O2SAT 98
[2021-11-08 08:33] LABS: Alanine Aminotransferase 14 IU/L (<50); Albumin 4.1 g/dL (3.5-5.0); Albumin Globulin Ratio 1.3 (1.0-2.8); Alkaline Phosphatase 53 U/L (38-126); Aspartate Aminotransferase 22 IU/L (17-59); BUN Creatinine Ratio 29.9 (6-22); Bilirubin Total 1.6 mg/dL (0.2-1.3); Bilirubin Unconjugated 1.9 mg/dL (0.0-1.1); Blood Urea Nitrogen 20 mg/dL (9-20); Calcium 9.2 mg/dL (8.4-10.2); Carbon Dioxide 31 mmol/L (22-32); Chloride 100 mmol/L (98-107); Estimated Glomerular Filt Rate > 60 mL/min (>60); Globulin 3.1 g/dL (1.7-4.1); Glucose 117 mg/dL (80-110); HEMOLYSIS < 15 (0-50); Potassium 3.6 mmol/L (3.4-5.1); Sodium 138 mmol/L (137-145); Total Protein 7.2 g/dL (6.3-8.2)
--- NOTE | 2021-11-08 09:03 | PM.DS.1 ---
History of Present Illness History of Present Illness Date Patient Seen: 11/08/21 Time Patient Seen: 09:04 Chief complaint: Chest Pain Narrative: Per JOSE Reed: Fidel Evans is an 81-year-old male with a history of atrial flutter, anticoagulation on Xarelto, hypertension, hyperlipidemia, aortic valve insufficiency as well as thoracic aortic aneurysm, was in his usual state of health and being drawn for labs today when he developed sudden onset pain across the mid back area.? He had seen Dr. Nguyen, his PCP earlier today and was sent to the labs for his annual labs. He then developed chest pressure after he returned home.? He does have chronic shortness of breath due to pulmonary fibrosis, he had denies having headache, he is not aware that he has atrial flutter except for when he was hospitalized previously, he denies nausea vomiting sweats or chills, he does have a history do patrons contractures, and does not detect when he is having atrial flutter.? He is due to see Dr. Zepeda head turning machine operator for a cardiac ablation.? He also states that he has a 5 cm thoracic aneurysm that they are watching.? He had an echocardiogram done on May 23 of last year with an EF of 55-60% an a severely dilated left atrium.? Also noted [id number] mitral regurgitation and moderate tricuspid regurgitation, a mildly dilated aortic root with severely enlarged ascending aorta. Chest x-ray was read as findings consistent with chronic interstitial lung disease, and asymmetric opacities in left lung base suspicious of pneumonia.? He is afebrile, blood pressure 166/96, heart rate 89, respiratory rate 19, oxygen saturation of 92% on room air, he weighs 78.8 kg with a BMI of 24.3.? WBC is largely within normal limits but his platelet count is a 113, D-dimer was mildly elevated at 465, his chemistries were essentially normal and is proBNP was 1400, troponin was 0.35 increasing to 0.073, lipase is within normal limits and COVID-19 PCR is negative. Discharge Providers Provider Date of admission: 11/07/21 02:18 Discharge Date: 11/08/21 Primary care physician: Ross Sexton MD Consults: 11/07/21 04:24 Consult to Cardiology Routine Comment: Consulting Provider: Bruce Hull Reason for consultation: Chest pain, rising enzymes Has provider been notified: Yes Discharge provider: Jerome Keller DO Summary Hospital Course Discharge Diagnosis: 1. Paroxysmal atrial fibrillation with rapid ventricular response 2. Mycoardial injury, improved. 3. HTN 4. HLD 5. Pulmonary fibrosis, chronic Hospital Course: This is an 81-year-old male with past medical history of hypertension, hyperlipidemia, and atrial fibrillation who was admitted with chest pain.? This morning he developed rapid AFib with RVR with a rate into the 150s and 160s.? This was improved with a single dose of IV diltiazem and increasing his home carvedilol.? He had elevated troponins which improved, which was likely due to his rapid rate. Suspect that his chest pain was related to atrial fibrillation and he had no recurrence after RVR resloved. Echocardiogram was delayed initially as the patient was in rapid AFib, and was performed the following day and showed no significant changes compared to prior studies. His rate was much improved at the time of discharge. He did have a low magnesium which was repleted. He has a planned follow-up with an past due accounts clerk as an outpatient already. Exam Vital Signs (past 8 hours): - 11/08/21 02:00 11/08/21 05:55 11/08/21 08:32 Temperature 97.6 F 98.2 F 97.3 F L Pulse Rate 64 79 81 Respiratory Rate 19 18 19 Blood Pressure 136/84 129/87 155/99 H Pulse Oximetry 99 97 98 Oxygen Delivery Method Room Air Oxygen Flow Rate 0 Narrative Exam Narrative: Gen: Alert, oriented, well-developed male, NAD Resp: Lungs CTA b/l, non-labored breathing CV: RRR, no murmur or rubs Abd: soft, nt, nd Skin:? Bruising on arms, no lesions or rashes, dry and intact Neuro: Alert and oriented X 4 w/no focal deficits. Speech clear and coherent. Extremities: no edema or joint effusions Objective Labs Result Diagrams: 11/08/21 08:07 11/08/21 08:07 Labs: Laboratory Results - last 24 hr 11/08/21 11/08/21 08:07 08:07 WBC 11.2 H RBC 4.49 L Hgb 14.0 Hct 41.8 MCV 93.1 MCH 31.2 MCHC 33.5 RDW 16.0 H Plt Count 89 L Neut % (Auto) 76.9 H Lymph % (Auto) 4.2 L [place] % (Auto) 18.3 H Eos % (Auto) 0.2 L Baso % (Auto) 0.4 Neut # (Auto) 8600 H Lymph # (Auto) 500 L [place] # (Auto) 2100 H Eos # (Auto) 0 Baso # (Auto) 0 Sodium 138 Potassium 3.6 Chloride 100 Carbon Dioxide 31 BUN 20 Creatinine 0.67 Estimated GFR > 60 BUN/Creatinine Ratio 29.9 H Glucose 117 H Calcium 9.2 Total Bilirubin 1.6 H Conjugated Bilirubin 0.0 Unconjugated Bilirubin 1.9 H AST 22 ALT 14 Alkaline Phosphatase 53 Total Protein 7.2 Albumin 4.1 Globulin 3.1 Albumin/Globulin Ratio 1.3 PFSH Medical History Atrial fibrillation with rapid ventricular response BPH (benign prostatic hyperplasia) Chronic anticoagulation Chronic respiratory failure with hypoxia Contracture of palmar fascia Essential hypertension History of colon polyps History of prostate cancer Hypertension Male erectile dysfunction, unspecified Mixed hyperlipidemia Nonrheumatic aortic (valve) insufficiency Nonrheumatic aortic (valve) insufficiency Palmar fascial fibromatosis [dupuytren] Pulmonary fibrosis Thoracic aortic aneurysm without rupture Typical atrial flutter Family History (Updated 11/07/21 @ 04:39 by JOSE Reed) Mother Heart disease Father Medical history unknown Social History household members: spouse Smoking Status: Never smoker alcohol intake: current Discharge Plan Discharge Plan Patient Disposition: Home Provider Discharge Comment: You were admitted to the hospital with afib with RVR. Please follow up with Dr. Zepeda as planned previously. Your home medication was increased, no other medication changes are recommended. Discharge orders & Medications Prescriptions: New carvedilol [Coreg] 12.5 mg Tablet 12.5 mg PO BID 30 Days Qty: 60 0RF Continued Xarelto 20 mg tablet 20 mg PO DAILY 0RF Rx Instructions: must administer with evening meal atorvastatin 10 mg tablet 10 mg PO BEDTIME Qty: 90 3RF lisinopril 20 mg tablet 20 mg PO DAILY 0RF Label Comments: TAKE 1 TABLET BY MOUTH EVERY DAY (DME) Parking Permit... See Rx Instructions .Route .MEDSUPPLY Qty: 1 0RF Rx Instructions: As directed cyanocobalamin (vitamin B-12) 1,000 mcg Tablet 1,000 mcg PO DAILY 0RF aspirin 81 mg Tablet,Delayed Release (Dr/Ec) 81 mg PO DAILY 0RF cholecalciferol (vitamin D3) 25 mcg (1,000 unit) Tablet 25 mcg PO DAILY 0RF diltiazem HCl 120 mg Capsule,Extended Release 24hr 120 mg PO DAILY 90 Days Qty: 90 4RF diclofenac sodium 1 % gel 2 g TOPICAL DAILY PRN (Reason: Mild Pain (Scale Score 1-4)) 0RF Rx Instructions: apply to single elbow, wrist or hand; for hand includes palm/fingers/back of hand Discontinued carvedilol 6.25 mg Tablet 6.25 mg PO BID 0RF Rx Instructions: must administer with a meal/food Follow up/Referrals: Ross Sexton MD [Primary Care Provider] - Diet/Activity/Treatments Diet: Diet as Tolerated Diet comment: Enc low sodium, heart healthy. Activity: As tolerated Visit Report/Discharge Packet Instructions: DI for Atrial Fibrillation, Diltiazem Discharge Data Primary Care Provider: Ross Sexton V Attending Provider: Jeanette Lee VTE Deep Vein Thrombosis/Pulmonary Embolism Present on Admission: No
[2021-11-08] MEDS: lisinopriL 20 MG TABLET PO (09:14)
[2021-11-08] MEDS: ASPIRIN EC 81 MG TABLET PO (09:14)
[2021-11-08] MEDS: RIVAROXABAN 10 MG TABLET 20 MG PO (09:14)
[2021-11-08] MEDS: SODIUM CHLORIDE 0.9% FLUSH 10 ML IV (09:23)
[2021-11-08] MEDS: dilTIAZem CD 120 MG CAP PO (09:23)
--- NOTE | 2021-11-08 10:08 | PC.NURSE ---
AM shift Pt is A/o x4, eager to DC home today.Echo has been completed. denies CP and states, I gotta get out of here ,this is the worst sleep I have ever had. DC orders obtained. Reviewed follow up care plan with Patient and . IV and tele removed. Wheeled to private vehicle.
--- NOTE | 2021-11-08 14:55 | CM.DPC ---
DCP Discharge Home Per MD, pt is medically stable to d/c home today with no identified barriers to discharge. Per RN, pt back down to his 2LO2 same as his home oxygen level and pt is ready to d/c home and spouse bedside and able to provide transport home and no concerns at this time and given d/c instruction and pt very happy to be discharging home. Plan: Patient to d/c home via spouse POV today and no further SW needs at this time. PIETER Mcgee
== END 2021-11-08 10:28 | disposition home or self-care (01) ==
LOC: ED 11-07 02:14 → AC 11-07 02:19
PROVIDERS: Admitting Provider Nurse Practitioner Family; Emergency Provider Emergency Medicine; Family Provider Internal Medicine; PCP Internal Medicine; Visit Provider Nurse Practitioner Family
DX: I48.0 Paroxysmal atrial fibrillation (principal); R06.02 Shortness of breath; I10 Essential (primary) hypertension; E78.5 Hyperlipidemia, unspecified; J84.10 Pulmonary fibrosis, unspecified; Z79.01 Long term (current) use of anticoagulants; Z20.822 Contact with and (suspected) exposure to COVID-19
CPT/HCPCS: 36415; 71045; 80048; 80053; 80061; 80076; 82550; 83036; 83690; 83735; 83880; 84443; 84484; 85025; 85027; 85379; 87635; 93005; 93010; 93306; 94762; 96374; 96376; 99284; C9803; G0378; J1940; J3475